=== PATIENT | female | born 1930 | race Caucasian/White ===

== ENCOUNTER → 2017-11-17 08:05 | Day surgery (SDC) | payer MEDICARE, BC ==
[~2017-11-17 08:05] MED LIST: Aspirin 81 mg CHEW TAB* 81 MG TAB.CHEW ONE; Clopidogrel TAB* 75 MG ONE; Flumazenil* 0.1 MG/ML 5 ML MDV ONE; Heparin 2 UNITS/ML IVPREMIX* 1,000 ML IV ONE; Heparin 2 UNITS/ML IVPREMIX* 2,000 ML IV ONE; Heparin(*) 1000 UNIT/ML 10 ML VIAL CATH LAB IV ONE; Iodixanol* (CONTRAST) 320 MG/ML 100 ML SDV ONE; Iohexol 350 (CONTRAST) 200 ML MDV IV ONE; LORazepam TAB(*) 1 MG ONE; Lidocaine 1% INJ* 10 MG/ML 30 ML SDV ONE; Midazolam* 1 MG/ML 10 ML VIAL (10 MG) ONE; Naloxone* 0.4 MG/ML 1 ML VIAL ONE; fentaNYL* 50 MCG/ML 2 ML VIAL (100 MCG VIAL) ONE; nitroGLYCERIN DRIP* 25,000 MCG/250 ML BTL ONE
--- NOTE | 2017-11-17 14:49 | PN ---
Progress Note - Progress Note Date of Service: 11/17/17 SOAP: Subjective: Pain at back and right shoulder. No abdominopelvic or LE pain. No pain at left groin. Objective: 94 bpm, 22, 118/59, 93% (room air) Left groin is soft, nontender Dressing is CDI Abdomen is soft nontender Faint 1+ pulse palpated at right DPA Assessment: 87 YOF status post pelvic and RLE arteriography and balloon angioplasty of right external iliac artery, BILINGUAL INTERPRETER, SFA and popliteal arteries. Percutaneous Minx closure device to left common femoral arteriotomy. Plan: 1. D/C back to [facility] after 2 hours bedrest. 2. Start Plavix 75 mg PO every other day x 6 months. 3. ASA 81 mg PO daily for life. 4. Continue wound care and abx.
[2017-11-17 16:15] VITALS: BP 158/74
--- NOTE | 2017-11-17 18:36 | RAD ---
CPT II Codes: G9500 Procedure(s) performed: 1. Diagnostic pelvic and right lower extremity arteriogram. 2. Balloon angioplasty of the distal most right external iliac artery, right common femoral artery, right superficial femoral artery and right popliteal artery. 3. Percutaneous Minx closure device to the left common femoral arteriotomy. Date of service: November 17, 2017 Indication for procedure: Nonhealing wound along the medial aspect of the right great toe Comparison: LYNDON dated September 19, 2017 Contrast: 130 mL Visipaque 320 Fluoroscopy Time: 23.2 minutes Vessels Accessed: Percutaneous access was obtained with ultrasound guidance in the left common femoral artery in the retrograde direction towards the heart. Catheter arteriography, with the catheter tip located within the lumen of the following arteries, was performed at the left external iliac artery, aorta, right external iliac artery, right common femoral artery and right superficial femoral artery. Anesthesia: Conscious sedation with IV Fentanyl and Versed as well as local 1% lidocaine injected locally at the arteriotomy site. Conscious sedation time: Timeout: 1124 hours Case end: 1348 hours Total conscious sedation time: 2 hours and 24 minutes Additional medications: * 300 mcg IA nitroglycerin injected intermittently throughout the course of the procedure to alleviate arterial spasm. * IV heparin 5000 Units to achieve a goal ACT of 250-300. * The patient received mg of p.o. Ativan prior to the onset of the procedure. PROCEDURE NOTE AND INTRAPROCEDURAL IMAGING FINDINGS: Immediately prior to the procedure the patient's daughter signed consent after thoroughly discussing all risks, benefits and alternative therapies with the patient and her daughter. The patient was positioned on the fluoroscopy table in the supine position and the bilateral groins were shaved, prepped and the patient was draped in standard sterile fashion. Using fluoroscopic imaging the location of the left common femoral head was marked externally with a skin marker on the patient's groin. Utilizing sonographic guidance and palpation, the left common femoral artery was cannulated overlying the femoral head with a 21-gauge needle. An ultrasound image was saved. A microwire was slowly and smoothly advanced into the common femoral artery under fluoroscopic imaging. No buckling of the wire was visualized to indicate dissection. With the wire securing percutaneous arterial access, the needle was removed and a 5-Martiniquais access sheath was advanced under fluoroscopic control into the common femoral artery retrograde into the left external iliac artery securing access. The microwire and inner stiffener were removed and a 0.035 inch Bentson wire was advanced under fluoroscopic control into the aorta. Over the Bentson wire the 5-Martiniquais access sheath was replaced with a 5-Martiniquais SideArm access sheath. Contrast arteriogram was performed through the side arm of the access sheath demonstrating appropriate true lumen access of the left common femoral artery. There is multifocal stenoses in the left common femoral superficial femoral arteries. To further characterize and exactly locate the extent of atherosclerotic disease involving the pelvis and right lower extremity diagnostic catheter arteriography was necessary. Over the wire a multiside hole straight flush catheter was advanced into the lower abdominal aorta. Injection arteriography was performed demonstrating curvature of the aortoiliac arterial segment but patency is maintained up to the junction of the right external iliac arteries and common femoral arteries. Contrast arteriography included inferior mesenteric arteriogram which demonstrated hyperemia of the sigmoid colon and evidence of wall thickening up to 4 mm. Utilizing a 5-Martiniquais rim catheter the contralateral right common iliac artery was accessed and a wire was advanced as far as the right superficial femoral artery. A 4-Martiniquais glide catheter was advanced into the proximal right superficial femoral artery to perform contrast arteriography of the right lower extremity. This demonstrated multifocal stenoses throughout the length of the right superficial femoral artery including high-grade stenosis at the origin. There is stenoses also within the right common femoral artery and the distal most right external iliac artery. More inferiorly multiple stenoses in the distal right superficial femoral artery continuing into the right popliteal artery. There is a high branch point of the right anterior tibial artery which appears to be the lone infrapopliteal artery filling below the level of the knee. The right anterior tibial artery continues into the dorsalis pedis artery which essentially provides the sole blood flow to the patient's foot. There is no significant filling of either the peroneal or posterior tibial arteries. A 260 cm length hydrophilic wire was inserted into the catheter and advanced to the distal right superficial femoral artery securing access. Over the wire the 5-Martiniquais access sheath was replaced with a long 45 cm access sheath and this was advanced until the tip was at the right external iliac artery. Through the sheath and over the wire a 5 mm x 150 mm Passeo-35 35 balloon was advanced and balloon angioplasty was performed from the distal most right external iliac artery including the entire length of the right common femoral artery, the superficial femoral artery and the proximal half of the right popliteal artery. During each inflation the balloon was slowly dilated in a stepwise fashion to avoid dissection and vasospasm. At each level the balloon was first inflated to nominal pressure slowly and was ultimately inflated to 14 kun corresponding to an approximate diameter of 5.3 mm. At this maximum diameter the balloon remained inflated for minimum of 3 minutes and no erosive best achieving patency. It was difficult to inflate the balloon much further than the mid-level popliteal artery. Furthermore, the visualization of the popliteal artery was obscured by the patient's knee prosthesis. With external assistance the patient's knee was rotated in a manner that allowed good angiographic visualization of the distal most popliteal artery revealing multifocal severe stenoses nearing occlusion. Contrast arteriography was performed from the access sheath with the tip now in the right external iliac artery. A 0.014 inch advantage microwire was advanced as far as the proximal right anterior tibial artery securing access across the patient's low in-line flow below the knee. Over the wire a 4 mm x 80 mm Nanocross balloon was advanced to the popliteal artery and balloon angioplasty was performed along the entire length of the popliteal artery up to the branch point with the anterior tibial artery. Similar to the prior series of angioplasty, the balloon was slowly inflated in a stepwise fashion achieving 14 kun of pressure corresponding to a diameter measurement of 4.3 mm. Arteriography from the access sheath with the tip in the right external iliac artery demonstrates improved flow throughout the length of the right superficial femoral artery, into the popliteal artery and filling the right anterior tibial artery proximally. The microwire was exchanged for a catheter for standard 0.035 inch Bentson wire. Over the wire the 45 cm length access sheath was exchanged for a new 5-Martiniquais, 11 cm length access sheath intended specifically for percutaneous arterial closure. Through the side arm of the access sheath arteriography of the left common femoral artery demonstrated an appropriate puncture of the common femoral artery above the bifurcation and below the inferior epigastric artery. After an appropriate resterilization of the arteriotomy and exchange for new sterile gloves, a Minx closure device was deployed at the common femoral arteriotomy and pressure held for approximately 15 minutes. There were no signs of bleeding at the percutaneous arterial access site and the site was dressed with sterile gauze and Tegaderm. The patient tolerated the procedure well and was transferred to angiography holding bay for standard post procedural observation. SUMMARY OF PROCEDURE, IMAGING FINDINGS AND INTERVENTIONS PERFORMED: 1. Diagnostic studies performed: * Arterial access was obtained at the left common femoral artery in the retrograde direction (i.e. towards the heart) with ultrasound guidance. A sonographic image was recorded. * Diagnostic catheter angiography (necessary to perform the appropriate interventions) was performed with the catheter tip in the left external iliac artery, aorta, right external iliac artery, right common femoral artery and right superficial femoral artery. * Catheter arteriography was performed of the lower abdominal aorta and bilateral iliac arterial system and the right lower extremity arteries from the right external iliac artery to the digital branches of the right forefoot. * At the conclusion of the procedure arteriography was performed through the side arm of the access sheath to image the distal right external iliac artery, right common femoral artery and proximal superficial femoral artery and femoral profundus. 2. Interpretation of diagnostic studies performed: * Adequate patency in the lower abdominal aorta extending into the bilateral iliofemoral arteries. Stenoses began at the distal right external iliac artery and continuing into the right femoral arteries becoming more severe and frequent inferiorly. * Single vessel runoff into the right foot is provided by the right anterior tibial artery which exhibits a high bifurcation off of the popliteal artery. There is essentially no filling of the peroneal or posterior tibial arteries. * Arteriography performed for the purpose of deploying a percutaneous arterial closure device demonstrates adequately patent left external iliac artery, common femoral artery and proximal superficial femoral artery and femoral profundus. 3. Surgical interventions performed: * Balloon angioplasty of the distal most right external iliac artery, right common femoral artery, right superficial femoral artery and proximal right popliteal artery utilizing a 5 mm x 150 mm Passeo 35 Biotronik balloon. During each inflation the balloon was inflated in a stepwise fashion, Deandra and 14 kun corresponding to a diameter measurement of 5.3 mm. This final diameter remain inflated for a minimum of 3 minutes at each inflation to address vasospasm. * After advancing a microwire into the right anterior tibial artery, balloon angioplasty was performed of the more distal right popliteal artery and branch point of the right anterior tibial artery using a 4 mm x 80 mm NanoCross Elite balloon. The balloon was inflated ultimately to 14 kun corresponding to a diameter measurement of 4.3 mm and remain inflated at this diameter for a minimum of 3 minutes. * Hyperemia of the sigmoid colon is consistent with sigmoid colitis. * Closure of the left common femoral artery was achieved with a Minx closure device followed by 15 minutes of gentle manual pressure. 4. Interpretation of interventions performed: * Final arteriography demonstrated improved in-line flow from the right external iliac artery as far as the proximal right anterior tibial artery. Plan: 1. Aspirin 81 mg p.o. daily for life. 2. Plavix 75 mg p.o. every other day x 6 months. (The reduced dosage is out of consideration for the patient's Xarelto 20 mg p.o. daily). 3. Clinical and imaging follow-up according to standard Interventional Radiology protocol. 4. Recommend continued wound care. 5. The appearance of sigmoid colitis was discussed over the telephone with Dr. Cullen.
== END | disposition home or self-care (01) ==
LOC: CHICATH 08:05
PROVIDERS: ATTEND Radiology Diagnostic Radiology
DX: I70.261 Atherosclerosis of native arteries of extremities with gangrene, right leg (principal); E11.9 Type 2 diabetes mellitus without complications; Z79.4 Long term (current) use of insulin; Z79.01 Long term (current) use of anticoagulants; Z87.01 Personal history of pneumonia (recurrent); I69.354 Hemiplegia and hemiparesis following cerebral infarction affecting left non-dominant side
CPT/HCPCS: 75736; 76937; 85347; 99156; 99157; A9270-GY; C1725; C1769; C1887; C1894; J1644; J2250; J2310; J3010

== ENCOUNTER 2017-11-21 00:37 | Inpatient (IN) | payer MEDICARE, BC ==
--- NOTE | 2017-11-21 00:54 | ED ---
GI/ HPI - HPI Summary HPI Summary: An 87 y/o F BIBA from [facility] presents to ED for possible GI bleed. Pt had an angiogram four days ago. Pt c/o vomiting bile and blood stool. She is non-ambulatory. PMHx: GERD, HTN, afib, arthritis, DM, CVATIA. - History of Current Complaint Chief Complaint: EDBleedingDisorder Time Seen by Provider: 11/21/17 00:43 Stated Complaint: GENERAL ILLNESS Hx Obtained From: Patient, Other: - transfer call from [place] Onset/Duration: Still Present Timing: Constant Pain Intensity: 0 - out of 10 Associated Signs and Symptoms: Positive: Vomiting - Additional Pertinent History Primary Care Physician: CARLEY - Allergy/Home Medications Allergies/Adverse Reactions: Allergies Allergy/AdvReac Type Severity Reaction Status Date / Time codeine Allergy Unknown Verified 11/21/17 00:44 Reaction Details gabapentin [From Neurontin] Allergy Unknown Verified 11/21/17 00:44 Reaction Details Home Medications: Home Medications Aspirin [Aspir-Low] 81 mg PO DAILY 11/21/17 [History Confirmed 11/21/17] PMH/Surg Hx/FS Hx/Imm Hx Previously Healthy: No Endocrine/Hematology History: Reports: Hx Anticoagulant Therapy - asa 81 plavix , Hx Blood Transfusions - about 4 yrs ago when toe was amputated, Hx Diabetes, Hx Anemia - take iron at home Denies: Hx Blood Disorders, Hx Bone Marrow Disease, Hx Systemic Lupus Erythematosus, Hx Sickle Cell Disease, Hx Thyroid Disease, Hx Unexplained Bleeding, Other Endocrine/Hematological Disorders Cardiovascular History: Reports: Hx Hypercholesterolemia, Hx Hypertension, Hx Peripheral Vascular Disease - neorapathy, Hx Syncope - while pregnate, Other Cardiovascular Problems/Disorders - quadrupel bypass Denies: Hx Aneurysm, Hx Angina, Hx Angioplasty, Hx Auto Implanted Cardiovert Defib, Hx Cardiac Arrest, Hx Cardiomegaly, Hx Congestive Heart Failure, Hx Coronary Artery Disease, Hx Deep Vein Thrombosis, Hx Embolism, Hx Hypotension, Hx Pacemaker/ICD, Hx Rheumatic Fever, Hx Valvular Heart Disease Respiratory History: Denies: Hx Asthma, Hx Chronic Bronchitis, Hx Chronic Obstructive Pulmonary Disease (COPD), Hx Cystic Fibrosis, Hx Lung Cancer, Hx Pleural Effusion, Hx Pneumonia, Hx Pulmonary Edema, Hx Pulmonary Embolism, Hx Seasonal Allergies, Hx Sleep Apnea GI History: Reports: Hx Hiatal Hernia - umbilical hernia, 60 years, out a bit more over the last year, Other GI Disorders - balooning anus Denies: Hx Cirrhosis, Hx Crohn's Disease, Hx Diverticulosis, Hx Gall Bladder Disease, Hx Gastroesophageal Reflux Disease - occasional, Hx Gastrointestinal Bleed, Hx Irritable Bowel, Hx Jaundice, Hx Obstructive Bowel, Hx Ileostomy, Hx Pyloric Stenosis, Hx Ulcer History: Reports: Other Problems/Disorders - occasional UTI Denies: Hx Acute Renal Failure, Hx Benign Prostatic Hyperplasia, Hx Chronic Renal Failure, Hx Dialysis, Hx Kidney Infection, Hx Kidney Stones Musculoskeletal History: Reports: Hx Arthritis, Hx Back Problems - lower vertebrae, arthritis, Hx Osteoporosis - 2nd toe on right foot was amputated 3-4 yrs ago Denies: Hx Bursitis, Hx Congenital Bone Abnormalities, Hx Fibromyalgia, Hx Gout, Hx Scoliosis, Hx Tendonitis, Other Musculoskeletal History Sensory History: Reports: Hx Cataracts, Hx Contacts or Glasses, Hx Vision Problem - floaters, Hx Hearing Problem - comes and goes Denies: Hx Eye Injury, Hx Eye Prosthesis, Hx Glaucoma, Hx Legally Blind, Hx Macular Degeneration, Hx Deafness, Hx Hearing Aid, Other Sensory Impairments Opthamlomology History: Reports: Hx Cataracts, Hx Contacts or Glasses, Hx Vision Problem - floaters Denies: Hx Eye Injury, Hx Eye Prosthesis, Hx Glaucoma, Hx Legally Blind, Hx Macular Degeneration, Other Sensory Impairments Neurological History: Reports: Hx Headaches - occasional perhaphs related to neck pain, Hx Nerve Disease - neuropathy, Hx Spinal Cord Injury - arthritis to three lower vert Denies: Hx Dementia, Hx Developmental Delay, Hx Migraine, Hx Seizures, Hx Transient Ischemic Attacks (TIA), Other Neuro Impairments/Disorders Psychiatric History: Denies: Hx Anxiety, Hx Depression - Surgical History Surgery Procedure, Year, and Place: 2009 toe amputated. 2005 quad bypass. D&C 54 yrs ago Hx Anesthesia Reactions: Yes - slow coming out Infectious Disease History: No Infectious Disease History: Denies: Hx Clostridium Difficile, Hx Hepatitis, Hx Human Immunodeficiency Virus (HIV), Hx of Known/Suspected MRSA, Hx Shingles, Hx Tuberculosis, Hx Known/ Suspected VRE, Hx Known/Suspected VRSA, History Other Infectious Disease, Traveled Outside the [place] in Last 30 Days - Family History Known Family History: Positive: Cardiac Disease - CAD - Social History Occupation: Retired Lives: With Family Alcohol Use: None Substance Use Type: Reports: None Smoking Status (MU): Never Smoked Tobacco Review of Systems Negative: Cough Positive: Vomiting, Other - pos: blood stools All Other Systems Reviewed And Are Negative: Yes Physical Exam - Summary Physical Exam Summary: VITAL SIGNS: Reviewed. GENERAL: Patient is a well-developed, nourished, and elderly FEMALE who is lying comfortable in the stretcher. Patient is not in any acute respiratory distress. HEAD AND FACE: No signs of trauma. No ecchymosis, hematomas or skull depressions. No sinus tenderness. EYES: PERRLA, EOMI x 2, No injected conjunctiva, no nystagmus. EARS: Hearing grossly intact. Ear canals and tympanic membranes are within normal limits. MOUTH: Oropharynx within normal limits. NECK: Supple, trachea is midline, no adenopathy, no JVD, no carotid bruit, no c- spine tenderness, neck with full ROM. CHEST: Symmetric, no tenderness at palpation LUNGS: Clear to auscultation bilaterally. No wheezing or crackles. CVS: Regular rate and rhythm, S1 and S2 present, no murmurs or gallops appreciated. ABDOMEN: Soft, non-tender. Divaricating abd. No rebound no guarding, and no masses palpated. Bowel sounds are normal. EXTREMITIES: FROM in all major joints, no edema, no cyanosis or clubbing. Pt is wearing padded boots on bilat LE. NEURO: Alert and oriented x 3. Grossly non-focal. Speech is normal and follows commands. SKIN: Dry and warm Triage Information Reviewed: Yes Vital Signs On Initial Exam: Initial Vitals Temp Pulse Resp BP Pulse Ox 100 F 98 18 120/63 94 11/21/17 00:40 11/21/17 00:40 11/21/17 00:40 11/21/17 00:40 11/21/17 00:40 Vital Signs Reviewed: Yes Diagnostics - Vital Signs Vital Signs Temp Pulse Resp BP Pulse Ox 11/21/17 00:40 100 F 98 18 120/63 94 - Laboratory Result Diagrams: 11/23/17 06:31 11/23/17 06:31 Lab Statement: Any lab studies that have been ordered have been reviewed, and results considered in the medical decision making process. GIGU Course/Dx - Course Course Of Treatment: An 87 y/o F BIBA from [facility] presents to ED for possible GI bleed. Pt had an angiogram four days ago. Pt c/o vomiting bile and blood stool. Hospitalist paged at [phone]. Consulted with Dr. Matthew hospitalist, who will admit pt. - Diagnoses Provider Diagnoses: Upper GI bleed - Physician Notifications Discussed Care Of Patient With: Ivon Matthew - hospitalist Time Discussed With Above Provider: 04:37 Instructed by Provider To: Admit As Inpatient Discharge - Sign-Out/Discharge Documenting (check all that apply): Patient Departure - ADM - Discharge Plan Condition: Stable Disposition: ADMITTED TO [facility] - Billing Disposition and Condition Condition: STABLE Disposition: Admitted to [facility] - Attestation Statements Document Initiated by Scribe: Yes Documenting Scribe: Ernesto Sinclair Provider For Whom Deandre is Documenting (Include Credential): Dr. Shruthi Bains MD Scribe Attestation: Ernesto Sandy, scribed for Dr. Shruthi Bains MD on 11/25/17 at 0610. Scribe Documentation Reviewed: Yes Provider Attestation: The documentation as recorded by the Ernesto knapp accurately reflects the service I personally performed and the decisions made by me, Dr. Shruthi Bains MD
[2017-11-21] MEDS ORDERED: Pantoprazole IV* 40 MG IV ONE (01:02)
[2017-11-21] MEDS ORDERED: Pantoprazole IV* 80 MG in NS 0.9% 250 ML* 250 ML IV SCH (02:00)
[2017-11-21] MEDS ORDERED: NS 0.9% 1000 ML* 1,000 ML IV SCH (05:00)
--- NOTE | 2017-11-21 05:24 | ADMNOTE ---
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 as per [facility] note pt was found to have fever too at [facility] but could not find the tmax. her wbc has increased from 12 to 16 yesterday despite of chronically on bactrim and levaquin ---> has been on that for chronic om of the right foot upon exam, she has a eschar seen on the right foot despite of abx ---> needs to be debrided ---> abx changed to zosyn and vanco --> wound eval called and gi called for consult ---> info of why consults needed left. her hg prior to transfer was 10 ---> NO LABS DONE UPON ADMISSION FROM ER ? 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 chronic anemia paf type ii dm chronic back pain gerd pshx s/p r hip replacement Review of Systems - Measurements Intake and Output: Intake and Output Last 24 Hours 11/18/17 11/19/17 11/20/17 11/21/17 06:59 06:59 06:59 06:59 Weight 130 lb 14.4 oz - Review of Systems General Comments: poor historian unable to get from pt but she knows she has bleed from behind Objective Active Medications: Acetaminophen (Tylenol Tab*) 650 mg PO BEDTIME WAYNE Docusate Sodium (Colace Cap*) 200 mg PO DAILY WAYNE Ferrous Gluconate (Fergon Tab*) 324 mg PO DAILY WAYNE Fluticasone Propionate (Flonase Nasal [place] 50mcg*) 1 spray BOTH NARES DAILY WAYNE Sodium Chloride (Ns 0.9% 1000 Ml*) 1,000 mls @ 75 mls/hr IV PER RATE WAYNE Levofloxacin (Levaquin Tab*) 250 mg PO DAILY WAYNE Non-Formulary Medication (Ascorbic Acid [Vitamin C]) 250 mg PO BID WAYNE Non-Formulary Medication (Cholecalciferol (Vitamin D3) [Vitamin D3]) 1,000 unit PO BEDTIME WAYNE Non-Formulary Medication (Cholecalciferol (Vitamin D3) [Vitamin D3]) 2,000 unit PO DAILY WAYNE Nortriptyline HCl (Pamelor Cap*) 20 mg PO BEDTIME WAYNE Omeprazole (Prilosec Cap*) 20 mg PO BID WAYNE Oxycodone HCl (Roxycodone Tab*) 5 mg PO BEDTIME WAYNE Pantoprazole Sodium (Protonix Iv*) 40 mg IV Q24H WAYNE Polyethylene Glycol/Electrolytes (Miralax*) 17 gm PO DAILY WAYNE Pregabalin (Lyrica Cap(*)) 25 mg PO DAILY WAYNE Senna (Senokot Tab*) 3 tab PO BEDTIME WAYNE Trimethoprim/Sulfamethoxazole (Bactrim Ds 800/160 Tab*) 1 tab PO BID [facility] Vital Signs - 8 hr 11/21/17 11/21/17 11/21/17 00:40 01:12 01:13 Temperature 100 F Pulse Rate 98 92 98 Respiratory 18 Rate Blood Pressure 120/63 102/58 (mmHg) O2 Sat by Pulse 94 96 95 Oximetry 11/21/17 11/21/17 11/21/17 01:42 02:00 02:12 Temperature Pulse Rate 97 90 90 Respiratory 19 18 19 Rate Blood Pressure 108/57 103/52 (mmHg) O2 Sat by Pulse 92 93 93 Oximetry 11/21/17 11/21/17 11/21/17 02:42 03:00 03:12 Temperature Pulse Rate 84 86 85 Respiratory 13 19 19 Rate Blood Pressure 119/58 104/52 (mmHg) O2 Sat by Pulse 93 93 92 Oximetry 11/21/17 11/21/17 11/21/17 03:42 04:00 04:12 Temperature Pulse Rate 84 84 85 Respiratory 18 14 19 Rate Blood Pressure 113/56 104/56 (mmHg) O2 Sat by Pulse 93 92 92 Oximetry 11/21/17 11/21/17 04:42 05:00 Temperature Pulse Rate 87 87 Respiratory 13 18 Rate Blood Pressure 97/55 (mmHg) O2 Sat by Pulse 95 91 Oximetry Eyes: PERRLA Ears/Nose/Mouth/Throat: - - oral mucosa dry very hard of hearing Neck: NL Appearance and Movements; NL JVP, Trachea Midline, No Thyroid Enlargement, Masses Respiratory: - - decreased b/s at base no sig rales heard at b/l lung [place] Cardiovascular: - - s1 s2 Abdominal: NL Sounds; No Tenderness; No Distention Extremities: No Edema, No Clubbing, Cyanosis, - - no pedal edema with right foot medial aspect + echycar/erythema around + left hemiparalysis the only ext she can move against gravity is the rue Skin: - - + r foot eshcar Neurological: Alert and Oriented x 3 - left hemiparalysis Result Diagrams: 11/21/17 06:20 11/21/17 06:20 Assess/Plan/Problems-Billing Assessment: 87 yr old wf with multple medical problems on asa/plavix/ xarelto was transferred from [facility] to [facility] due to brbpr pt was found to have elevated wbc with black echecar seen on r foot ---> pt carries a dx of chronic r foot om on bactrim/levaquin ---> still have temp to at least 100 with wbc of 12-16 prior to admission - Patient Problems (1) CAD (coronary artery disease) Current Visit: No Status: Acute Priority: High Code(s): I25.10 - ATHSCL HEART DISEASE OF BLACKFEET CORONARY ARTERY W/O ANG PCTRS SNOMED Code(s): 68384828 Comment: tele with juan m hold asa/plavix/ xarelto (2) Acute blood loss anemia Current Visit: No Status: Acute Priority: High Code(s): D62 - ACUTE POSTHEMORRHAGIC ANEMIA SNOMED Code(s): 262745865 Comment: Hg prior to transfer is 10 ---> routine lab ordered for am sbp wnl (3) A-fib Current Visit: Yes Status: Acute Code(s): I48.91 - UNSPECIFIED ATRIAL FIBRILLATION SNOMED Code(s): 52900007 Comment: on xarelto with hx of cva ---> on hold for now due to lower gib until gi sees the pt consult placed (4) HTN (hypertension) Current Visit: No Status: Acute Priority: Medium Code(s): I10 - ESSENTIAL (PRIMARY) HYPERTENSION SNOMED Code(s): 32676224 Comment: stable continue out pt meds (5) History of CVA (cerebrovascular accident) Current Visit: Yes Status: Acute Code(s): Z86.73 - PRSNL HX OF TIA (TIA), AND CEREB INFRC W/O RESID DEFICITS SNOMED Code(s): 295799368 Comment: supportive care at this point may karolina to resume anticoag and xarelto once she stablizes (6) SIRS (systemic inflammatory response syndrome) Current Visit: Yes Status: Acute Code(s): R65.10 - SIRS OF NON-INFECTIOUS ORIGIN W/O ACUTE ORGAN DYSFUNCTION SNOMED Code(s): 864510390 Comment: increased wbc with fever despite of levaquin and bactrim source currently is due to r foot om - wound care consult to debride - zosyn and vanco - ? id (7) Acute lower gastrointestinal bleeding Current Visit: Yes Status: Acute Code(s): K92.2 - GASTROINTESTINAL HEMORRHAGE, UNSPECIFIED SNOMED Code(s): 08053768 Comment: gi consult placed pending upon gi suggestion then will place further orders npo except meds now protonix 40 mg daily asa plavix and xarelto on hold for now
[2017-11-21] MEDS ORDERED: Vancomycin(*) 1,000 MG in NS 0.9% 250 ML* 250 ML IVPB ONE (05:50)
[2017-11-21] MEDS ORDERED: Piperacillin/Tazobac ADVAN(*) 3.375 GM in NS 0.9% 100 ML* 100 ML IVPB SCH (06:00)
[2017-11-21] MEDS ORDERED: Vancomycin(*) 1,000 MG BAG/ADDV IVPB ONE (06:31)
[2017-11-21 06:34] LABS: Hematocrit 29 % (35-47); Hemoglobin 9.5 g/dl (12.0-16.0)
[2017-11-21] MEDS: NS 0.9% 1000 ML* 1,000 ML IV SCH (08:23)
[2017-11-21 08:32] LABS: ABS Basophils 0.1 10^3/ul (0-0.2); ABS Eosinophils 0.4 10^3/ul (0-0.6); ABS Lymphocytes 1.8 10^3/ul (1.0-4.8); ABS Neutrophils 9.2 10^3/ul (1.5-7.7); ABS Nucleated RBC 0 10^3/ul; Eosinophil % 3.4 % (0-6); Lymphocyte % 14.3 % (25-47); Mean Corpuscular HGB Conc 33 g/dl (31-36); Mean Corpuscular Hemoglobin 26 pg (27-31); Mean Corpuscular Volume 78 fL (80-97); Mean Platelet Volume 5.9 um3 (7.4-10.4); Nucleated Red Blood Cells % 0; Platelet Count 472 10^3/ul (150-450); Red Blood Count 3.73 10^6/ul (4.00-5.40); Red Cell Distribution Width 20 % (10.5-15); White Blood Count 12.4 10^3/ul (3.5-10.8)
[2017-11-21 08:47] LABS: EGFR Non-African American 75.6 (>60)
[2017-11-21] MEDS ORDERED: Omeprazole CAP* 20 MG PO SCH (09:00)
[2017-11-21] MEDS ORDERED: ZOSYN 3.375 GM x ONE DOSE over 30 miuntes IVPB ×2 (09:00)
[2017-11-21] MEDS ORDERED: Sulfamethox/Trimethoprim DS 800/160* TAB PO SCH (09:00)
[2017-11-21] MEDS ORDERED: Levofloxacin TAB* 250 MG PO SCH (09:00)
[2017-11-21] MEDS: Polyethylene Glycol 3350* 17 GM PACKET PO SCH (09:05)
[2017-11-21] MEDS: Docusate CAP* 100 MG PO SCH (09:05)
[2017-11-21] MEDS: Cholecalciferol TAB* 1000 UNITS PO SCH ×2 (09:21→22:22)
[2017-11-21] MEDS: Pregabalin CAP(*) 25 MG PO SCH (09:21)
[2017-11-21] MEDS: Ferrous Gluconate TAB* 324 MG TAB PO SCH (09:21)
[2017-11-21] MEDS: Ascorbic Acid TAB* 500 MG PO SCH ×2 (09:21→22:22)
[2017-11-21] MEDS: Fluticasone NASAL SPRAY 50MCG* 16 gm SPRAY BTL BOTH NARES SCH (11:18)
[2017-11-21] MEDS: Pantoprazole IV* 40 MG IV SCH (11:18)
--- NOTE | 2017-11-21 11:23 | PN ---
Subjective Date of Service: 11/21/17 Interval History: Patient reports she feels better today. Reports one BM this am w/o noted blood ( per nurse). She denies any abdominal pain or vomiting. Reports her right foot wound started a few months ago and is followed by her primary. She denies fever or chills. No nausea. CVA > 5 years ago which left her with left sided facial droop and weakness. 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 chronic anemia paf type ii dm chronic back pain gerd pshx s/p r hip replacement Objective Active Medications: Acetaminophen (Tylenol Tab*) 650 mg PO BEDTIME WAYNE Ascorbic Acid (Vitamin C Tab*) 250 mg PO BID [facility] Last Admin: 11/21/17 09:21 Dose: Not Given Cholecalciferol (Vitamin D Tab*) 1,000 units PO BEDTIME [facility] Cholecalciferol (Vitamin D Tab*) 2,000 units PO DAILY [facility] Last Admin: 11/21/17 09:21 Dose: Not Given Docusate Sodium (Colace Cap*) 200 mg PO DAILY [facility] Last Admin: 11/21/17 09:05 Dose: Not Given Ferrous Gluconate (Fergon Tab*) 324 mg PO DAILY [facility] Last Admin: 11/21/17 09:21 Dose: Not Given Fluticasone Propionate (Flonase Nasal [place] 50mcg*) 1 spray BOTH NARES DAILY [facility] Sodium Chloride (Ns 0.9% 1000 Ml*) 1,000 mls @ 75 mls/hr IV PER RATE [facility] Last Admin: 11/21/17 08:23 Dose: 75 mls/hr Piperacillin Sod/Tazobactam (Sod 3.375 gm/ Sodium Chloride) 100 mls @ 25 mls/ hr IVPB 0530,1330,2130 WAYNE Nortriptyline HCl (Pamelor Cap*) 20 mg PO BEDTIME WAYNE Oxycodone HCl (Roxycodone Tab*) 5 mg PO BEDTIME WAYNE Pantoprazole Sodium (Protonix Iv*) 40 mg IV Q24H WAYNE Polyethylene Glycol/Electrolytes (Miralax*) 17 gm PO DAILY [facility] Last Admin: 11/21/17 09:05 Dose: Not Given Pregabalin (Lyrica Cap(*)) 25 mg PO DAILY [facility] Last Admin: 11/21/17 09:21 Dose: Not Given Senna (Senokot Tab*) 3 tab PO BEDTIME [facility] Vital Signs - 8 hr 11/21/17 11/21/17 11/21/17 03:42 04:00 04:12 Temperature Pulse Rate 84 84 85 Respiratory 18 14 19 Rate Blood Pressure 113/56 104/56 (mmHg) O2 Sat by Pulse 93 92 92 Oximetry 11/21/17 11/21/17 11/21/17 04:42 05:00 05:12 Temperature Pulse Rate 87 87 90 Respiratory 13 18 19 Rate Blood Pressure 97/55 112/62 (mmHg) O2 Sat by Pulse 95 91 93 Oximetry 11/21/17 11/21/17 11/21/17 05:42 06:00 06:12 Temperature Pulse Rate 85 85 83 Respiratory 18 17 18 Rate Blood Pressure 104/61 120/51 (mmHg) O2 Sat by Pulse 94 92 92 Oximetry 11/21/17 11/21/17 11/21/17 06:43 07:10 08:00 Temperature 97.4 F 97.7 F Pulse Rate 84 79 Respiratory 20 16 16 Rate Blood Pressure 118/52 114/44 (mmHg) O2 Sat by Pulse 94 94 Oximetry Oxygen Devices in Use Now: None Appearance: elderly female laying in bed resting A+O x3 in NAD. Eyes: No Scleral Icterus, PERRLA Ears/Nose/Mouth/Throat: NL Teeth, Lips, Gums, Mucous Membranes Moist Neck: NL Appearance and Movements; NL JVP Respiratory: Symmetrical Chest Expansion and Respiratory Effort, Clear to Auscultation Cardiovascular: NL Sounds; No Murmurs; No JVD, RRR, No Edema Abdominal: NL Sounds; No Tenderness; No Distention Skin: - - right foot noted to have eschar area over 1rst metarasal/phalange - foot is warmer compared to left - mild erythema noted. No drainage Neurological: Alert and Oriented x 3, - - left sided facial droop and weakness ( at her baseline) Lines/Tubes/Other Access: Clean, Dry and Intact Peripheral IV Nutrition: - - NPO Result Diagrams: 11/21/17 11:40 11/21/17 06:20 Microbiology and Other Data: Microbiology 11/21/17 08:25 Nasal Screen MRSA (PCR) - Final Nasal Mrsa Not Detected Assess/Plan/Problems-Billing Assessment: 87 yr old female with multple medical problems on asa/plavix/ xarelto was transferred from [facility] to [facility] due to brbpr pt was found to have elevated wbc with black echscar seen on r foot ---> pt carries a dx of chronic r foot om on bactrim/levaquin ---> still have temp to at least 100 with wbc of 12-16 prior to admission - Patient Problems (1) Acute lower gastrointestinal bleeding Comment: - GI consult pending. - Bloody stool in ER - BM this am with gel like stool with no blood noted. - Strict I+O's - npo except meds now - protonix 40 mg daily - asa plavix and xarelto on hold for now (2) Acute blood loss anemia Comment: Hg prior to transfer is 10 ---> down to 9.5. Monitor HH Q6hr continue NS 75ml/hr SBP stable (3) SIRS (systemic inflammatory response syndrome) Comment: - Increased wbc with fever despite of levaquin and bactrim source currently is due to r foot osteo - wound care consult - zosyn - Vanco was given on admission - - ID and ortho consult placed - MRI foot to assess for osteo - send blood cx. and lactic (4) CAD (coronary artery disease) Comment: tele hold asa/plavix/ xarelto (5) History of CVA (cerebrovascular accident) Comment: Hold xarelto (6) Diabetes 1.5, managed as type 2 Comment: FSBG Q 4hours while NPO Hold home regimen of regular insulin and lantus - start lispro SS (7) HLD (hyperlipidemia) Comment: Continue Tricor and Lipitor. (8) DVT prophylaxis Comment: Hold DVT p d/t GI bleed. SCDs only Status and Disposition: inpatient with GI, SIRS 2nd to foot osteo failed outpt abx now on IV abx. DC back to SNF when medically stable.
[2017-11-21 12:04] LABS: Hematocrit 32 % (35-47); Hemoglobin 10.1 g/dl (12.0-16.0)
[2017-11-21] MEDS: Piperacillin/Tazobac ADVAN(*) 3.375 GM in NS 0.9% 100 ML* 100 ML IVPB SCH ×2 (13:52→22:22)
--- NOTE | 2017-11-21 17:16 | CONS ---
CONSULTATION REPORT: DATE OF CONSULT: 11/21/17 REQUESTING PROVIDER: Cynthia Fan NP CONSULTING SERVICE: Infectious Disease. REASON FOR CONSULT: Right foot infection. IMPRESSION: Right medial forefoot dry gangrene with associated cellulitis in the setting of peripheral vascular disease and history of [id number] angioplasty. Wound culture on 11/16/17 of that wound grew Pseudomonas sensitive to Zosyn. RECOMMENDATIONS: Agree with MRI to evaluate for osteomyelitis. Pending those results, probable orthopedic consultation. HISTORY OF PRESENT ILLNESS: This is an 87-year-old woman, who has been followed as an outpatient for right foot wound by Dr. Cullen. Her wound earlier in the month grew Pseudomonas. She had been on Levaquin. She thinks the wound has been present about [address] Beauchamp did [id number] angioplasty earlier in the month. She has had no drainage and does not have pain in the foot, though she does have neuropathy. [facility], but [facility] here for GI bleed. She was febrile at [facility] as well with leukocytosis of 16,000. She was on vancomycin and Zosyn here initially, now just Zosyn. She has been here and hemodynamically stable. Her hemoglobin is 10 today. PAST MEDICAL HISTORY: 1. Peripheral vascular disease, status post [id number]-mwq-teld intervention. 2. Diabetes with peripheral neuropathy. 3. History of stroke with left hemiparesis. 4. Coronary disease. 5. Atrial fibrillation. 6. Hypertension. MEDICATIONS: 1. Tylenol. 2. Vitamin C. 3. Cholecalciferol. 4. Docusate. 5. Ferrous gluconate. 6. Fluticasone nasal spray. 7. Nortriptyline at bedtime. 8. Oxycodone at bedtime. 9. Zosyn 3.375 g IV every 8 hours. 10. Pantoprazole IV. 11. Pregabalin. 12. Senna. ALLERGIES: CODEINE and GABAPENTIN. FAMILY HISTORY: No recurrent infections. SOCIAL HISTORY: She lives at [facility]. She has no sick contacts. REVIEW OF SYSTEMS: All negative to a 14-point review of systems except as noted above in the history of present illness. PHYSICAL EXAM: Vital Signs: Temperature 36.2, heart rate 70, respiratory rate 16, blood pressure 109/40, oxygen saturation 97% on room air. In general, she is awake, not in distress. Neurologic: She is oriented x3. Follows all commands. She has left upper and lower extremity paralysis. HEENT: There is no conjunctival hemorrhage. Oropharynx without lesions. Neck is supple without mass. Heart is irregularly irregular without murmurs. Lungs are clear to auscultation bilaterally. Abdomen: Soft, nontender, nondistended. There are bowel sounds present. Skin: There is no rash or splinter hemorrhage. Musculoskeletal: There is no spine tenderness to palpation. Right medial forefoot over the first MTP, there is 2.5 cm ovoid area of eschar with surrounding erythema. There is no purulence or tenderness to palpation. There is a 1+ dorsalis pedis pulse. LABORATORY DATA: White blood cell count 12, hemoglobin 9, platelets 472. The followup hemoglobin at 11 was 10. Creatinine 0.7. CRP 105. Please see impressions and recommendations as outlined above, which I have discussed with Cynthia Fan NP. Thanks for asking me to see Ms. Cavanaugh in consultation. [id number]/[facility] #: [id number] ADELSO
--- NOTE | 2017-11-21 17:33 | RAD ---
INDICATION: Worsening right foot wound COMPARISON: None. TECHNIQUE: 3 views of the right foot were obtained. FINDINGS: The patient is status post amputation of the right second phalanges. Corresponding to the location of the wound along the medial aspect of the distal right first metatarsal head there is valgus deformity at the metatarsophalangeal joint. There is cortical destruction along the medial aspect of the right first metatarsal distal head. Overall the bones are diffusely demineralized. Advanced calcified atherosclerosis is noted at the visualized infrapopliteal and pedal arteries. IMPRESSION: CORTICAL DESTRUCTION ALONG THE MEDIAL ASPECT OF THE FIRST METATARSAL MEDIAL HEAD COULD BE SEEN IN THE SETTING OF OSTEOMYELITIS AT THIS LOCATION.
[2017-11-21 18:51] LABS: Hematocrit 28 % (35-47); Hemoglobin 8.7 g/dl (12.0-16.0)
--- NOTE | 2017-11-21 22:12 | CONS ---
CONSULTATION REPORT: DATE OF CONSULT: 11/21/17 CHIEF COMPLAINT: Right great toe wound. HISTORY OF PRESENT ILLNESS: Corrine is an 87-year-old female, who presented to the ER with concern for a GI bleed. She also has a wound on the medial aspect of her right great toe that has been treated chronically for with Bactrim and Levaquin. She recently had a balloon angioplasty of the distal most right external iliac artery, right common femoral artery, right superficial femoral artery, and right popliteal artery, as well as percutaneous Mynx closure device to the left common femoral arteriotomy by Dr. Beauchamp on 11/17/17. She is now 4 days out from that procedure in an attempt to revascularize the lower extremities for treatment of chronic peripheral vascular disease. The patient also has a history of amputation of the second right toe 4 years ago for treatment of osteomyelitis. The patient states that she continues to have pain in the right great toe, but it has not changed much in the past couple of weeks. She does report pain in her bilateral lower extremities due a history of neuropathy. She is diabetic and she also has numbness and tingling due to the chronic neuropathy. She denies fevers, chills, chest pain, shortness of breath, and is doing well otherwise. PAST MEDICAL HISTORY: Blood transfusion 4 years ago, diabetes, anemia, high cholesterol, hypertension, peripheral vascular disease, neuropathy of the upper and lower extremities bilaterally, history of syncope when , coronary artery disease with quadruple bypass, hiatal hernia, umbilical hernia, osteoarthritis, chronic back pain, osteoporosis, and second toe amputation. PAST SURGICAL HISTORY: Toe amputation, quadruple bypass in 2005, and D and C 54 years ago. Denies major complications with anesthesia. MEDICATIONS: 1. Senna 3 tabs before bedtime. 2. Omeprazole 20 mg 1 by mouth 2 times a day. 3. Bactrim DS 1 tab by mouth twice a day. 4. Xarelto 10 mg 1 by mouth daily. 5. Vitamin D3 2000 units p.o. daily. 6. Vitamin D3 1000 units p.o. at bedtime. 7. Acetaminophen 325 two tabs at bedtime. 8. Oxycodone 5 mg 1 by mouth at bedtime. 9. Nortriptyline 20 mg by mouth at bedtime. 10. MiraLAX 17 g by mouth daily. 11. Lyrica 25 mg by mouth daily. 12. Lantus 12 units subcu daily. 13. Insulin regular 5 units subcu daily. 14. Flonase spray, 1 spray in the bilateral nares daily. 15. Fergon tabs 324 mg 1 by mouth daily. 16. Colace 200 mg by mouth daily. 17. Ascorbic acid 250 mg by mouth twice a day. 18. Plavix 75 mg by mouth every other day. 19. Levofloxacin 250 mg 1 tab by mouth daily. 20. Aspirin 81 mg 1 by mouth daily. ALLERGIES: CODEINE and GABAPENTIN. FAMILY HISTORY: Positive for coronary artery disease. SOCIAL HISTORY: She is retired. She lives with her family. She denies tobacco use, alcohol use, or illegal drug use. REVIEW OF SYSTEMS: A 14-point review of systems was reviewed with the patient. Positive for vomiting, blood in her stools, and current complaint of bilateral lower extremity pain and wound on her medial aspect of her right great toe, otherwise negative. PHYSICAL EXAM: General: An 87-year-old well-developed, well-nourished female, in no acute distress. Alert and oriented x3. Appropriate mood and affect. Appropriate balance and coordination of the lower extremities. Right lower extremity: There is a large black eschar on the medial aspect of the right great toe near the MTP joint that is tender to palpation, chronic skin changes surrounding the eschar with no significant warmth or erythema. No active drainage. She has a full range of motion of the ankle. Able to flex and extend her toes with some discomfort. Calf soft, nontender. +5/5 strength to ankle dorsiflexion and plantar flexion. +2 DP pulse. Sensation decreased to light touch distally. Left lower extremity: Skin is intact. No warmth or erythema. Nontender to palpation. No abrasions or open wounds. Full range of motion of the ankle. Calf soft, nontender. +5/5 strength to ankle dorsiflexion and plantar flexion. +2 DP pulse. Sensation intact to light touch distally. ASSESSMENT: Chronic right great toe wound. PLAN: Corrine is an 87-year-old female, who presented to the hospital for treatment of a GI bleed, but she has a chronic wound on her right great toe with recent revascularization. X-rays and MRI are pending to further evaluate the degree of osteomyelitis. Continue Zosyn per Infectious Disease recommendations. Also, we will appreciate Vascular and Infectious Disease input on the status of the wound, wound healing ability, and quality of the infection, as well as recommended treatment for the infection. We will continue to follow for wound monitoring. WHIT LOMELI [id number]/[facility] #: [id number] ADELSO
[2017-11-21] MEDS: Nortriptyline CAP* 10 MG PO SCH (22:21)
[2017-11-21] MEDS: oxyCODONE TAB* 5 MG TAB PO SCH (22:21)
[2017-11-21] MEDS: Acetaminophen TAB* 325 MG PO SCH (22:21)
[2017-11-21] MEDS: Senna TAB PO SCH (22:29)
--- NOTE | 2017-11-21 22:37 | CONS ---
CONSULTATION REPORT: DATE OF CONSULTATION: 11/21/17 REQUESTING PHYSICIAN: REASON FOR CONSULTATION: Hematochezia. HISTORY OF PRESENT ILLNESS: This is a pleasant 87-year-old female with a history of AFib; CAD, on Plavix, aspirin, and Xarelto; diabetes; and CVA, who presented from the [facility] ER initially for possible GI bleed. She had an angiogram for peripheral vascular disease 4 to 5 days ago. The episode was 1 self- limiting. She denies any abdominal pain. No diarrhea or constipation. She denies any history of this in the past. She states she has never had a colonoscopy. She currently denies any further bleeding after the episode from the prior emergency room. At this time, she denies lightheadedness or dizziness. She is not ambulatory at baseline secondary to prior CVA. She denies any dysphagia, odynophagia, reflux, or heartburn. Denies any excess Motrin, ibuprofen, Aleve, or aspirin use. She denies any nausea or emesis. She states that she has had chronic left-sided facial droop and left-sided weakness. She is chair-bound and does not ambulate. She does have a right foot issue and eschar and she did have an angiogram done recently. Remainder of the 14-point review of systems is grossly negative. PAST MEDICAL HISTORY: AFib, CVA with left hemiparesis, type 2 diabetes, and severe peripheral vascular disease. PAST SURGICAL HISTORY: Recent angiography. HOME MEDICATIONS: Include: 1. Acetaminophen. 2. Ascorbic acid. 3. Aspirin. 4. Vitamin D3. 5. Plavix. 6. Colace. 7. Ferrous gluconate. 8. Fluticasone. 9. Insulin. 10. Levofloxacin. 11. Nortriptyline. 12. Omeprazole. 13. Oxycodone. 14. MiraLAX. 15. Lyrica. 16. Xarelto. 17. Senokot. 18. Trimethoprim double strength. ALLERGIES: Include CODEINE and GABAPENTIN. FAMILY HISTORY: No family history of GI, cancer, or inflammatory bowel disease. SOCIAL HISTORY: With prior internet security specialist of until recently. Negative tobacco. Negative ETOH. REVIEW OF SYSTEMS: Remainder of the 14-point review of systems is grossly negative. PHYSICAL EXAM: Vital Signs: Blood pressure 97/42, pulse 78, respiratory rate 16, 96% on room air. General: Elderly-appearing female, in bed. Alert and oriented x3, in no acute distress. HEENT: Atraumatic, normocephalic. Pupils are equal, round, and reactive to light. Sclerae anicteric. Conjunctivae are pink. Neck: Supple. No appreciable JVP. Trachea midline. Cardiovascular: Irregular rate and rhythm. S1, S2. Respiratory: Clear to auscultation bilaterally. Abdomen: Soft, nontender, nondistended. Bowel sounds positive. Skin Exam: Right foot with eschar. Neurological: Left-sided hemiparesis at baseline. Rectal Exam: Revealed normal tone with a brown stool. DIAGNOSTIC STUDIES/LAB DATA: Hemoglobin is 10.1, this appears to be closed to her baseline over the last 2 to 3 years, platelet count of 472. ASSESSMENT AND PLAN: This is an 87-year-old female with 1 episode of hematochezia and also presents with a peripheral vascular disease and possible right foot issue. 1. Hematochezia, self-limiting 1 episode, never had colonoscopy in the past. I discussed aggressive therapy including potentially doing a colonoscopy here versus watchful waiting. She would prefer to avoid any invasive procedures unless absolutely necessary at this point. She does not have any evidence of ongoing bleeding. She states that if she was to have recurrence of bleeding, she may be interested in colonoscopy at that point. At this point, we will hold on further evaluation. Her hemoglobin is at baseline. If she develops any new symptoms or recurrence of bleeding, consideration for colonoscopy. The patient understands the risk of not doing a colonoscopy including missed lesions, , morbidity, but at this point would prefer a conservative approach, which is reasonable. 2. Atrial fibrillation. 3. Severe peripheral vascular disease. 4. Right great toe with eschar per PMD. [id number]/[facility] #: [id number] [facility]
[2017-11-22] MEDS: NS 0.9% 1000 ML* 1,000 ML IV SCH (03:31)
[2017-11-22] MEDS: Pantoprazole IV* 40 MG IV SCH (05:16)
[2017-11-22] MEDS: Piperacillin/Tazobac ADVAN(*) 3.375 GM in NS 0.9% 100 ML* 100 ML IVPB SCH ×3 (05:16→22:15)
[2017-11-22 06:11] LABS: Hematocrit 27 % (35-47); Hemoglobin 8.4 g/dl (12.0-16.0); Mean Corpuscular HGB Conc 32 g/dl (31-36); Mean Corpuscular Hemoglobin 25 pg (27-31); Mean Corpuscular Volume 79 fL (80-97); Mean Platelet Volume 5.9 um3 (7.4-10.4); Platelet Count 434 10^3/ul (150-450); Red Blood Count 3.38 10^6/ul (4.00-5.40); Red Cell Distribution Width 20 % (10.5-15); White Blood Count 11.3 10^3/ul (3.5-10.8)
[2017-11-22 06:22] LABS: ABS Neutrophils 7.6 10^3/ul (1.5-7.7)
[2017-11-22 06:30] LABS: EGFR Non-African American 84.9 (>60)
[2017-11-22 06:54] LABS: ABS Basophils 0.1 10^3/ul (0-0.2); ABS Eosinophils 0.5 10^3/ul (0-0.6); ABS Lymphocytes 2.4 10^3/ul (1.0-4.8); ABS Monocytes 0.8 10^3/ul (0-0.8); ABS Nucleated RBC 0 10^3/ul; Eosinophil % 4.2 % (0-6); Lymphocyte % 21.2 % (25-47); Nucleated Red Blood Cells % 0.1
--- NOTE | 2017-11-22 08:47 | RAD ---
Indication: RIGHT great toe wound. Elevated white blood cell count. Fever. Comparison: November 21, 2017 radiographs. Technique: Noncontrast CT RIGHT foot from the level of the transverse tarsal joint through the toes. Report: Postsurgical change of amputation of the second toe at level of the metatarsal phalangeal joint. There is abnormal T2 signal involving the phalanges of the great toe and first metatarsal seen as far proximal as the mid diaphysis. There is corresponding loss of normal T1 marrow hyperintensity at the first proximal phalanx and first metatarsal. Soft tissue edema involving the subcutaneous tissue plane and intrinsic musculature of the foot. No loculated soft tissue plane abscess collection evident. Subcutaneous emphysema noted over the medial and dorsal aspects at the level of the first metatarsal phalangeal joint corresponding with soft tissue ulcer site. Moderate hallux valgus deformity. IMPRESSION: #. Osteomyelitis involving the first digit from the level of the mid diaphysis of the first metatarsal distal. Soft tissue inflammatory change without evidence for a loculated soft tissue plane abscess collection.
--- NOTE | 2017-11-22 10:07 | PN ---
Subjective Date of Service: 11/22/17 Interval History: . patient seen and evaluated at her bedside - daughter present during visit. Pt offers no complaints. She denies pain in her right foot. She discussed options with orthopedic surgeon today and has refused surgical intervention/ amputation and would like to try IV abx. She states she understands the risks. No fevers or chills. Denies abdominal pain. N/V/D. Reports good appetite. No further rectal bleeding or bloody or melena stools. 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 chronic anemia paf type ii dm chronic back pain gerd pshx s/p r hip replacement Objective Active Medications: Acetaminophen (Tylenol Tab*) 650 mg PO BEDTIME [facility] Last Admin: 11/21/17 22:21 Dose: 650 mg Ascorbic Acid (Vitamin C Tab*) 250 mg PO BID [facility] Last Admin: 11/21/17 22:22 Dose: 250 mg Cholecalciferol (Vitamin D Tab*) 1,000 units PO BEDTIME [facility] Last Admin: 11/21/17 22:22 Dose: 1,000 units Cholecalciferol (Vitamin D Tab*) 2,000 units PO DAILY [facility] Last Admin: 11/21/17 09:21 Dose: Not Given Docusate Sodium (Colace Cap*) 200 mg PO DAILY [facility] Last Admin: 11/21/17 09:05 Dose: Not Given Ferrous Gluconate (Fergon Tab*) 324 mg PO DAILY [facility] Last Admin: 11/21/17 09:21 Dose: Not Given Fluticasone Propionate (Flonase Nasal [place] 50mcg*) 1 spray BOTH NARES DAILY [facility] Last Admin: 11/21/17 11:18 Dose: 1 spray Sodium Chloride (Ns 0.9% 1000 Ml*) 1,000 mls @ 75 mls/hr IV PER RATE [facility] Last Admin: 11/22/17 03:31 Dose: 75 mls/hr Piperacillin Sod/Tazobactam (Sod 3.375 gm/ Sodium Chloride) 100 mls @ 25 mls/ hr IVPB 0530,1330,2130 [facility] Last Admin: 11/22/17 05:16 Dose: 25 mls/hr Nortriptyline HCl (Pamelor Cap*) 20 mg PO BEDTIME [facility] Last Admin: 11/21/17 22:21 Dose: 20 mg Oxycodone HCl (Roxycodone Tab*) 5 mg PO BEDTIME [facility] Last Admin: 11/21/17 22:21 Dose: 5 mg Pantoprazole Sodium (Protonix Iv*) 40 mg IV Q24H [facility] Last Admin: 11/22/17 05:16 Dose: 40 mg Polyethylene Glycol/Electrolytes (Miralax*) 17 gm PO DAILY [facility] Last Admin: 11/21/17 09:05 Dose: Not Given Pregabalin (Lyrica Cap(*)) 25 mg PO DAILY [facility] Last Admin: 11/21/17 09:21 Dose: Not Given Senna (Senokot Tab*) 3 tab PO BEDTIME [facility] Last Admin: 11/21/17 22:29 Dose: Not Given Vital Signs - 8 hr 11/22/17 03:17 Temperature 97.4 F Pulse Rate 74 Respiratory 20 Rate Blood Pressure 122/52 (mmHg) O2 Sat by Pulse 97 Oximetry Oxygen Devices in Use Now: None Appearance: elderly 87 yo female laying in bed in NAD - A+O x3 Eyes: No Scleral Icterus, PERRLA Ears/Nose/Mouth/Throat: Mucous Membranes Moist Respiratory: Symmetrical Chest Expansion and Respiratory Effort, Clear to Auscultation Cardiovascular: NL Sounds; No Murmurs; No JVD, RRR, No Edema Abdominal: NL Sounds; No Tenderness; No Distention Skin: - - right foot gangrene on first metatarsal - appears less erythematous compared to yesterday - no drainage or foul odor - + 2+ DP pulses - foot is warm and well perfused Neurological: Alert and Oriented x 3 Lines/Tubes/Other Access: Clean, Dry and Intact Peripheral IV Nutrition: Taking PO's Result Diagrams: 11/22/17 11:11 11/22/17 05:46 Microbiology and Other Data: Microbiology 11/21/17 08:25 Nasal Screen MRSA (PCR) - Final Nasal Mrsa Not Detected Assess/Plan/Problems-Billing Assessment: 87 yr old female with multple medical problems on asa/plavix/ xarelto was transferred from [facility] to [facility] due to brbpr pt was found to have elevated wbc with black echscar seen on r foot ---> pt carries a dx of chronic r foot om on bactrim/levaquin ---> still have temp to at least 100 with wbc of 12-16 prior to admission - Patient Problems (1) Acute lower gastrointestinal bleeding Comment: - GI consult - one episode of bloody stool- pt does not want a colonoscopy at this time. No further bloody stools. HH stable. - protonix 40 mg daily - stool for occult blood pending (2) Acute blood loss anemia Comment: stable (3) Gangrene of right foot Comment: - failed outpatient levaquin and bactrim - recent re-vascularization right LE from hip-knee by Dr. Beauchamp on 11/17 - spoke to Dr. Beauchamp - plan to restart ASA only and hold plavix - will wait and watch for 5 days then plan to restart xarelto - Appreciate ID consult - recommending zosyn - will require halfway IVs - ortho following- will f/u with patient at [place] - MRI foot showing: osteo involving the first digit from the level of mid diaohysis of the first metatarsal distal. Soft tissue inflammatory change w/o evidence for loculated soft tissue. -blood cx. NTD - wound care consult (4) SIRS (systemic inflammatory response syndrome) Comment: resolved (5) CAD (coronary artery disease) Comment: tele restart asa - recommend to restart xarelto in 5 days if no further GI bleeding (6) History of CVA (cerebrovascular accident) Comment: Hold xarelto - see above (7) Diabetes 1.5, managed as type 2 Comment: FSBG AC with lispro SS Hold home regimen of regular insulin start lantus 10 units QHS (8) HLD (hyperlipidemia) Comment: Continue Tricor and Lipitor. (9) DVT prophylaxis Comment: Hold DVT p d/t GI bleed. SCDs only Status and Disposition: inpatient with GI, SIRS 2nd to foot osteo failed outpt abx now on IV abx. DC back to SNF when medically stable.
[2017-11-22] MEDS ORDERED: Dextrose 50% Syringe 50 ML* 25 GM/50 ML SYRINGE IV PUSH PRN (10:17)
--- NOTE | 2017-11-22 11:01 | CONSULT ---
Consult Consult: S: Agree with Conchis Jacobson's note from yesterday. Patient lives at [facility] and is normally followed by Bethel Cullen MD, PCP at [facility] and has seen a reheater helper locally. Admitted for hematochezia, bleeding has stopped, anticoagulants being held, and patient refusing further workup. Patient's describes wound as being present for 1 month, though this is unlikely. Non-ambulatory and uses wheelchair. Prior history of right 2nd toe amputation. O: RLE: - Large eschar (~ 3 x 3 cm) along medial side of forefoot at level of great toe MTP joint - Surrounding rim of erythema with tenderness - Hallux valgus deformity - Sensation intact, but reduced to light touch toes - PT pulse 2+ intact; DP pulse not palpable; CR < 2 sec Laboratory Tests 11/21/17 11/21/17 11/21/17 06:20 11:40 18:43 WBC 12.4 H Hct 29 L 32 L 28 L Neut % (Auto) POC Glucose (mg/dL) 11/22/17 11/22/17 11/22/17 04:25 05:45 10:04 WBC 11.3 H Hct 27 L Neut % (Auto) 67.5 POC Glucose (mg/dL) 139 H 127 H A: Right great toe osteomyelitis Right medial forefoot wound with eschar Diabetes mellitus, PVD, peripheral neuropathy, non-ambulatory P: - Proximal extent of osteo is the distal end of 1st metatarsal - Given the failure of oral antibiotics and the large eschar overlying the 1st MTP joint, I don't expect healing of this infection. I recommended amputation, transmetatarsal of great toe. - A debridement of the eschar would leave exposed bone (to air) at the MTP joint given the size of that escharm, her valgus deformity, and the lack of soft tissue in that location as well as underlying osteoamyelitis. - Patient refused amputation. - Given the amputation refusal, I would recommend IV antibiotics. The patient can follow up with me in clinic in 2 weeks at [place] or in [place] in clinic. - Defer to ID service regarding IV antibiotics.
[2017-11-22] MEDS: Pregabalin CAP(*) 25 MG PO SCH (11:13)
[2017-11-22] MEDS: Cholecalciferol TAB* 1000 UNITS PO SCH ×2 (11:16→22:16)
[2017-11-22 11:18] LABS: Hematocrit 30 % (35-47); Hemoglobin 9.6 g/dl (12.0-16.0)
[2017-11-22] MEDS: Ascorbic Acid TAB* 500 MG PO SCH ×2 (11:18→22:15)
[2017-11-22] MEDS: Fluticasone NASAL SPRAY 50MCG* 16 gm SPRAY BTL BOTH NARES SCH (11:21)
[2017-11-22] MEDS: Ferrous Gluconate TAB* 324 MG TAB PO SCH (11:21)
[2017-11-22 11:27] LABS: INR 0.96 (0.77-1.02)
[2017-11-22] MEDS: Insulin LISPRO* 1 UNITS UNIT SUBCUT SCH ×2 (11:32→17:29)
[2017-11-22] MEDS: Docusate CAP* 100 MG PO SCH (11:35)
[2017-11-22] MEDS: Polyethylene Glycol 3350* 17 GM PACKET PO SCH (11:37)
[2017-11-22] MEDS ORDERED: Perflutren Lipid Microsphere* 3 ML VIAL ONE (14:36)
--- NOTE | 2017-11-22 17:02 | ECHO ---
Amended Report Patient: IDALIA MAZARIEGOS [facility] Rec#: [id number] : 1930 Date: 11/22/2017 Age: 87y Height: 155 cm / 61.0 in Weight: 61 kg / 134.4 lbs Sex: F BSA: 1.6 Room#: [facility] Admit Date#: 11/21/2017 Type: Inpatient Referring: Cynthia Fan Reading: Delano Pulido MD Incident Coordinator: Charlotte Lagunas TOMAS CC: Bethel Cullen MD Transthoracic Echocardiogram Indication: A-fib//CAD BP: 122/52 HR: 77 Rhythm: NSR Findings History: Dry gangrene right foot,PVD,DM,CVA with left hemiparesis,CAD,HTN. Technical Comments: The study is technically limited due to poor acoustic windows. Completed at 1500. Definity used to enhance images. Left Ventricle: The left ventricular chamber size is normal. Mild to moderate concentric left ventricular hypertrophy is observed. There is normal left ventricular systolic function. The estimated ejection fraction is greater than 65%. Abnormal left ventricular diastolic function is observed. Abnormal left ventricular diastolic filling is observed, consistent with impaired relaxation. The patient was unable to perform a Valsalva maneuver. Left Atrium: The left atrium is mildly dilated. Right Ventricle: The right ventricle is not well visualized. Right Atrium: The right atrium is not well visualized. Aortic Valve: The aortic valve is trileaflet. The aortic valve leaflets are mildly thickened. There is no evidence of aortic regurgitation. There is no evidence of aortic stenosis. Mitral Valve: There is mitral annular calcification. The mitral valve leaflets are mildly thickened. There is a trace of mitral regurgitation. There is no evidence of mitral stenosis. Tricuspid Valve: The tricuspid valve structure is not well visualized. Pulmonic Valve: The pulmonic valve appears normal in structure and function. There is no evidence of pulmonic regurgitation. There is no pulmonic stenosis. Pericardium: A pericardial fat pad is visualized. Aorta: There is no dilatation of the ascending aorta. There is no dilatation of the aortic arch. There is no dilation of the aortic root. Pulmonary Artery: The main pulmonary artery appears normal. Venous: The venous system is not well visualized. Contrast: Definity was used to optimize study. 3 ml used. Intravenous contrast was used to enhance endocardial border definition. Conclusions Mild to moderate concentric left ventricular hypertrophy is observed. The estimated ejection fraction is greater than 65%. Abnormal left ventricular diastolic filling is observed, consistent with impaired relaxation. The aortic valve leaflets are mildly thickened. There is a trace of mitral regurgitation. The left atrium is mildy dilated. Similar to 08/2013 except that the the MR was reported as mild last time. Measurements Name Value Normal Range RVIDd (AP) 2D 2.8 cm (0.9 - 2.6) IVSd (2D) 1.3 cm (0.6 - 1) LVPWd (2D) 1.1 cm (0.6 - 1) LVIDd (2D) 3.9 cm (3.6 - 5.4) LVIDs (2D) 2.1 cm - LV FS (2D) 46 % (25 - 45) Aortic Annulus 2.1 cm (1.4 - 2.6) Ao root diameter (2D) 3.3 cm (2.1 - 3.5) Ascending Ao 3.4 cm (2.1 - 3.4) Aortic arch 1.8 cm (1.8 - 3.4) Descending Ao 0.4 cm - LA dimension (AP) 2D 4.2 cm (2.3 - 3.8) LAd ISD 4CH 5.3 cm (2.9 - 5.3) LA ISD 4CH W 4.7 cm (2.5 - 4.5) Name Value Normal Range MV E-wave Vmax 0.9 m/sec - MV deceleration time 229 msec - MV A-wave Vmax 1 m/sec - MV E:A ratio 0.9 ratio - LV septal e' Vmax 0.07 m/sec - LV lateral e' Vmax 0.07 m/sec - Name Value Normal Range AV Vmax 1 m/sec - AV VTI 21.4 cm - AV peak gradient 4 mmHg - AV mean gradient 2 mmHg - LVOT Vmax 0.8 m/sec - LVOT VTI 20.7 cm - LVOT peak gradient 3 mmHg - LVOT mean gradient 1 mmHg - Name Value Normal Range PV Vmax 0.7 m/sec - PV peak gradient 2 mmHg -
[2017-11-22] MEDS ORDERED: Aspirin 81 mg CHEW TAB* 81 MG TAB.CHEW PO ONE (17:18)
[2017-11-22 18:39] LABS: Hematocrit 31 % (35-47)
[2017-11-22] MEDS ORDERED: Insulin GLARGINE(*) 1 UNITS UNIT SUBCUT SCH (21:00)
[2017-11-22] MEDS: oxyCODONE TAB* 5 MG TAB PO SCH (22:15)
[2017-11-22] MEDS: Nortriptyline CAP* 10 MG PO SCH (22:15)
[2017-11-22] MEDS: Acetaminophen TAB* 325 MG PO SCH (22:15)
[2017-11-22] MEDS: Senna TAB PO SCH (22:23)
[2017-11-23] MEDS: Piperacillin/Tazobac ADVAN(*) 3.375 GM in NS 0.9% 100 ML* 100 ML IVPB SCH (05:57)
[2017-11-23] MEDS: Pantoprazole IV* 40 MG IV SCH (05:57)
[2017-11-23 07:10] LABS: Hematocrit 34 % (35-47); Hemoglobin 10.4 g/dl (12.0-16.0); Mean Corpuscular HGB Conc 31 g/dl (31-36); Mean Corpuscular Hemoglobin 25 pg (27-31); Mean Corpuscular Volume 81 fL (80-97); Mean Platelet Volume 5.9 um3 (7.4-10.4); Platelet Count 381 10^3/ul (150-450); Red Cell Distribution Width 20 % (10.5-15); White Blood Count 10.8 10^3/ul (3.5-10.8)
[2017-11-23 07:22] LABS: EGFR Non-African American 96.6 (>60)
[2017-11-23 07:44] LABS: ABS Basophils 0.1 10^3/ul (0-0.2); ABS Eosinophils 0.4 10^3/ul (0-0.6); ABS Monocytes 0.9 10^3/ul (0-0.8); ABS Neutrophils 6.4 10^3/ul (1.5-7.7); ABS Nucleated RBC 0 10^3/ul; Eosinophil % 4.1 % (0-6); Lymphocyte % 27.6 % (25-47); Nucleated Red Blood Cells % 0.1
[2017-11-23] MEDS: Insulin LISPRO* 1 UNITS UNIT SUBCUT SCH ×3 (08:30→17:10)
[2017-11-23] MEDS: Ascorbic Acid TAB* 500 MG PO SCH ×2 (08:36→21:22)
[2017-11-23] MEDS: Pregabalin CAP(*) 25 MG PO SCH (08:37)
[2017-11-23] MEDS: Polyethylene Glycol 3350* 17 GM PACKET PO SCH (08:37)
[2017-11-23] MEDS: Cholecalciferol TAB* 1000 UNITS PO SCH ×2 (08:37→21:24)
[2017-11-23] MEDS: Docusate CAP* 100 MG PO SCH (08:37)
[2017-11-23] MEDS: Ferrous Gluconate TAB* 324 MG TAB PO SCH (08:37)
[2017-11-23] MEDS: Aspirin 81 mg CHEW TAB* 81 MG TAB.CHEW PO SCH (08:37)
[2017-11-23] MEDS: Fluticasone NASAL SPRAY 50MCG* 16 gm SPRAY BTL BOTH NARES SCH (08:37)
[2017-11-23] MEDS ORDERED: Clopidogrel TAB* 75 MG PO SCH (09:00)
[2017-11-23] MEDS ORDERED: Aspirin 81 mg CHEW TAB* 81 MG TAB.CHEW PO SCH (09:00)
--- NOTE | 2017-11-23 09:48 | PN ---
Progress Note - Progress Note Date of Service: 11/23/17 SOAP: Subjective: CC: gangrene HPI: 87 year old woman with PAD and right forefoot wound here with GIB and cellulitis. Redness receding around eschar. No foot pain. She denies fever, rash, or diarrhea. She met with Dr Dodson yesterday who recommended amputation. Objective: Vital Signs Temp 36.4 C 11/23/17 07:48 Pulse 74 11/23/17 07:48 Resp 16 11/23/17 08:37 BP 124/41 11/23/17 07:48 Pulse Ox 100 11/23/17 07:48 Intake & Output 11/22/17 11/23/17 11/23/17 18:59 06:59 18:59 Intake Total 660 345 Output Total 0 0 Balance 660 345 Intake: IVPB 105 Antibiotics 105 Oral 660 240 Output: Urine 0 0 Other: Estimated Void Medium Medium # Bowel Movements 1 0 Estimated Stool Amount Small Small # Voids 1 1 Gen:awake, no distress HEENT: no thrush Heart:RRR no murmur Lungs:CTA BL Abd:+BS NTND soft Skin: no rash MSK:R medial forefoot eschar w surrounding rim of erythema Laboratory Results - last 24 hr 11/22/17 11/22/17 11/22/17 10:04 11:11 11:11 WBC RBC Hgb 9.6 L Hct 30 L MCV MCH MCHC RDW Plt Count MPV Neut % (Auto) Lymph % (Auto) [place] % (Auto) Eos % (Auto) Baso % (Auto) Absolute Neuts (auto) Absolute Lymphs (auto) Absolute Monos (auto) Absolute Eos (auto) Absolute Basos (auto) Absolute Nucleated RBC Nucleated RBC % INR (Anticoag Therapy) 0.96 APTT 29.5 Sodium Potassium Chloride Carbon Dioxide Anion Gap BUN Creatinine Est GFR ( Amer) Est GFR (Non-Af Amer) BUN/Creatinine Ratio Glucose POC Glucose (mg/dL) 127 H Calcium 11/22/17 11/22/17 11/22/17 16:41 18:22 20:49 WBC RBC Hgb 10.0 L Hct 31 L MCV MCH MCHC RDW Plt Count MPV Neut % (Auto) Lymph % (Auto) [place] % (Auto) Eos % (Auto) Baso % (Auto) Absolute Neuts (auto) Absolute Lymphs (auto) Absolute Monos (auto) Absolute Eos (auto) Absolute Basos (auto) Absolute Nucleated RBC Nucleated RBC % INR (Anticoag Therapy) APTT Sodium Potassium Chloride Carbon Dioxide Anion Gap BUN Creatinine Est GFR ( Amer) Est GFR (Non-Af Amer) BUN/Creatinine Ratio Glucose POC Glucose (mg/dL) 196 H 167 H Calcium 11/23/17 11/23/17 11/23/17 06:31 06:31 07:24 WBC 10.8 RBC 4.20 Hgb 10.4 L Hct 34 L MCV 81 MCH 25 L MCHC 31 RDW 20 H Plt Count 381 MPV 5.9 L Neut % (Auto) 59.5 Lymph % (Auto) 27.6 [place] % (Auto) 8.1 H Eos % (Auto) 4.1 Baso % (Auto) 0.7 Absolute Neuts (auto) 6.4 Absolute Lymphs (auto) 3.0 Absolute Monos (auto) 0.9 H Absolute Eos (auto) 0.4 Absolute Basos (auto) 0.1 Absolute Nucleated RBC 0 Nucleated RBC % 0.1 INR (Anticoag Therapy) APTT Sodium 133 L Potassium 4.8 Chloride 108 Carbon Dioxide 18 L Anion Gap 7 BUN 16 Creatinine 0.59 Est GFR ( Amer) 116.9 Est GFR (Non-Af Amer) 96.6 BUN/Creatinine Ratio 27.1 H Glucose 128 H POC Glucose (mg/dL) 130 H Calcium 9.1 Assessment: 1. R foot acute non hematogenous osteomyelitis 2. R foot dry gangrene with cellulitis 3. PAD s/p R leg angioplasty 4. GI bleed, resolved Plan: 1. change zosyn to ceftriaxone 1 gm daily for 28 days with PICC and weekly cbc, cmp, crp 2. fu with Dr Dodson at [facility] for possibility of outpt surgery vs surgery here if daughter is amenable (placed call to her but no answer) 35 minutes floor time >50% face to face and coordinating care with Familia Dodson and Alyse and WALDEMAR Serna
[2017-11-23] MEDS: cefTRIAXone(*) 1 GM in NS 0.9% 50 ML* 50 ML IVPB SCH (13:01)
--- NOTE | 2017-11-23 13:03 | PN ---
Subjective Date of Service: 11/23/17 Interval History: Pt resting comfortably without complaint. Denies leg pain, chest pain, shortness of breath, N/V/D. 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 chronic anemia paf type ii dm chronic back pain gerd pshx s/p r hip replacement Objective Active Medications: Acetaminophen (Tylenol Tab*) 650 mg PO BEDTIME [facility] Last Admin: 11/22/17 22:15 Dose: 650 mg Ascorbic Acid (Vitamin C Tab*) 250 mg PO BID [facility] Last Admin: 11/23/17 08:36 Dose: 250 mg Aspirin (Aspirin 81 Mg Chew Tab*) 81 mg PO DAILY [facility] Last Admin: 11/23/17 08:37 Dose: 81 mg Cholecalciferol (Vitamin D Tab*) 1,000 units PO BEDTIME [facility] Last Admin: 11/22/17 22:16 Dose: 1,000 units Cholecalciferol (Vitamin D Tab*) 2,000 units PO DAILY [facility] Last Admin: 11/23/17 08:37 Dose: 2,000 units Dextrose (D50w Syringe 50 Ml*) 12.5 gm IV PUSH .FOR FS < 60 - SS PRN PRN Reason: FS < 60 Docusate Sodium (Colace Cap*) 200 mg PO DAILY [facility] Last Admin: 11/23/17 08:37 Dose: Not Given Ferrous Gluconate (Fergon Tab*) 324 mg PO DAILY [facility] Last Admin: 11/23/17 08:37 Dose: 324 mg Fluticasone Propionate (Flonase Nasal [place] 50mcg*) 1 spray BOTH NARES DAILY [facility] Last Admin: 11/23/17 08:37 Dose: 1 spray Ceftriaxone Sodium 1 gm/ (Sodium Chloride) 50 mls @ 200 mls/hr IVPB Q24H [facility] Insulin Glargine (Lantus(*)) 10 units SUBCUT Q24H [facility] Last Admin: 11/22/17 22:16 Dose: 10 units Insulin Human Lispro (Humalog*) 0 units SUBCUT AC [facility]; Protocol Last Admin: 11/23/17 11:49 Dose: 1 unit Nortriptyline HCl (Pamelor Cap*) 20 mg PO BEDTIME [facility] Last Admin: 11/22/17 22:15 Dose: 20 mg Oxycodone HCl (Roxycodone Tab*) 5 mg PO BEDTIME [facility] Last Admin: 11/22/17 22:15 Dose: 5 mg Pantoprazole Sodium (Protonix Iv*) 40 mg IV Q24H [facility] Last Admin: 11/23/17 05:57 Dose: 40 mg Polyethylene Glycol/Electrolytes (Miralax*) 17 gm PO DAILY [facility] Last Admin: 11/23/17 08:37 Dose: Not Given Pregabalin (Lyrica Cap(*)) 25 mg PO DAILY [facility] Last Admin: 11/23/17 08:37 Dose: 25 mg Senna (Senokot Tab*) 3 tab PO BEDTIME [facility] Last Admin: 11/22/17 22:23 Dose: Not Given Vital Signs - 8 hr 11/23/17 11/23/17 11/23/17 07:48 08:37 09:51 Temperature 97.6 F Pulse Rate 74 Respiratory 18 16 18 Rate Blood Pressure 124/41 (mmHg) O2 Sat by Pulse 100 Oximetry 11/23/17 11:28 Temperature 98.8 F Pulse Rate 83 Respiratory 20 Rate Blood Pressure 128/45 (mmHg) O2 Sat by Pulse 100 Oximetry Oxygen Devices in Use Now: None Eyes: PERRLA Ears/Nose/Mouth/Throat: NL Teeth, Lips, Gums, Mucous Membranes Moist Neck: NL Appearance and Movements; NL JVP, Trachea Midline Respiratory: Symmetrical Chest Expansion and Respiratory Effort Cardiovascular: NL Sounds; No Murmurs; No JVD, RRR, No Edema Abdominal: NL Sounds; No Tenderness; No Distention Extremities: No Edema, No Clubbing, Cyanosis, - - Eschar at right metatarsal joint with some surrounding erythema. No drainage or foul odor. Foot is warm and well perfused. 2+ DP and PT pulses bilaterally. Neurological: Alert and Oriented x 3, - - Left sided weakness residual deficits from prior CVA Result Diagrams: 11/23/17 06:31 11/23/17 06:31 Microbiology and Other Data: Microbiology 11/21/17 08:25 Nasal Screen MRSA (PCR) - Final Nasal Mrsa Not Detected Assess/Plan/Problems-Billing Assessment: 87 yr old female with multiple medical problems including R foot osteomyelitis ( on levaquin and bactrim), PVD s/p recent re-vascularization of right LE on asa/ plavix/ xarelto was transferred from [facility] to [facility] due to brbpr pt was found to have elevated wbc with black echscar seen on r foot. ED temp 100 with WBC 12.4 (16 prior to admission). ID and ortho consulted. No further signs of bleeding, VSS and H/H trending up. - Patient Problems (1) Gangrene of right foot Current Visit: Yes Status: Acute Code(s): I96 - GANGRENE, NOT ELSEWHERE CLASSIFIED SNOMED Code(s): 43321953828249871 Comment: - With associated cellulitis and osteomyelitis that failed outpatient levaquin and bactrim - Recent re-vascularization of right LE from hip-knee by Dr. Beauchamp on 11/17. Dr. Beauchamp was consulted about anticoagulation plan going forward given recent GIB- plan to restart ASA only and hold plavix - will wait and watch for 5 days then plan to restart xarelto - Ortho following- Dr. Miller met with patient and recommended amputation, however pt refused. IV abx recommended as well as follow up as outpatient at [place] if patient would like to re-consider amputation at that time. - ID is following: Recommending IV antibiotics with ceftriaxone 1g daily for 28 days as well as weekly monitoring of CBC, CMP, CRP. PICC order has been placed. Pt will be able to return to [facility] where she has been residing. - MRI foot showing: osteo involving the first digit from the level of mid diaohysis of the first metatarsal distal. Soft tissue inflammatory change w/o evidence for loculated soft tissue. - Blood culture with no growth to date - Afebrile with WBC WNL - wound care consult (2) GI bleed Current Visit: Yes Status: Acute Code(s): K92.2 - GASTROINTESTINAL HEMORRHAGE, UNSPECIFIED SNOMED Code(s): 55335414 Comment: - No further signs of bleeding. BP stable. Plavix and xarelto on hold. - H/H 10.4/34 today from low of 8.4/27. Will continue to monitor (3) Sepsis Current Visit: Yes Status: Acute Comment: - On admission presented with SIRS + known right foot infection. Now resolved- afebrile and WBC WNL. (4) History of CVA (cerebrovascular accident) Current Visit: Yes Status: Chronic Code(s): Z86.73 - PRSNL HX OF TIA (TIA), AND CEREB INFRC W/O RESID DEFICITS SNOMED Code(s): 281293813 Comment: - Left hemiparesis residual deficits - Xarelto and plavix held in the setting of GIB. Plan to resume as above. (5) Diabetes 1.5, managed as type 2 Current Visit: Yes Status: Chronic Priority: Medium Code(s): E13.9 - OTHER SPECIFIED DIABETES MELLITUS WITHOUT COMPLICATIONS SNOMED Code(s): 341102960 Comment: - Continue glargine 12 units nightly and sliding scale lispro (6) DVT prophylaxis Current Visit: Yes Status: Acute Priority: High Code(s): RME3761 - SNOMED Code(s): 037241576 Comment: - DVT ppx with SCDs only in setting of recent GI bleed (7) DNR (do not resuscitate) Current Visit: Yes Status: Acute Status and Disposition: inpatient with GI, SIRS 2nd to foot osteo failed outpt abx now on IV abx. DC back to SNF when medically stable. Attending: Anh Valadez
[2017-11-23] MEDS ORDERED: Insulin GLARGINE(*) 1 UNITS UNIT SUBCUT SCH ×2 (18:14→21:00)
--- NOTE | 2017-11-23 20:42 | PN ---
Progress Note - Progress Note Date of Service: 11/23/17 SOAP: Subjective: []Patient seen and examined at bedside. She was very sleepy and participate minimally in our conversation. Objective: []General: NAD RLE: right forefoot with eschar over medial 1st MTP and minimal erythema surrounding, no tracking proximally and no discharge. Sensation intact to light touch distally, cap refill less than two seconds distally Calves supple and nontender without erythema Assessment: []right forefoot eschar, osteomyelitis Plan: []Appreciate infection disease consultation: change zosyn to ceftriaxone 1 gm daily for 28 days with PICC and weekly cbc, cmp, crp Please fu with Dr Miller at discharge at [facility] for possibility of outpt surgery Laboratory Last Values WBC 10.8 10^3/ul (3.5-10.8) 11/23/17 06:31 RBC 4.20 10^6/ul (4.00-5.40) 11/23/17 06:31 Hgb 10.4 g/dl (12.0-16.0) L 11/23/17 06:31 Hct 34 % (35-47) L 11/23/17 06:31 MCV 81 fL (80-97) 11/23/17 06:31 MCH 25 pg (27-31) L 11/23/17 06:31 MCHC 31 g/dl (31-36) 11/23/17 06:31 RDW 20 % (10.5-15) H 11/23/17 06:31 Plt Count 381 10^3/ul (150-450) 11/23/17 06:31 MPV 5.9 um3 (7.4-10.4) L 11/23/17 06:31 Neut % (Auto) 59.5 % (38-83) 11/23/17 06:31 Lymph % (Auto) 27.6 % (25-47) 11/23/17 06:31 [place] % (Auto) 8.1 % (0-7) H 11/23/17 06:31 Eos % (Auto) 4.1 % (0-6) 11/23/17 06:31 Baso % (Auto) 0.7 % (0-2) 11/23/17 06:31 Absolute Neuts (auto) 6.4 10^3/ul (1.5-7.7) 11/23/17 06:31 Absolute Lymphs (auto) 3.0 10^3/ul (1.0-4.8) 11/23/17 06:31 Absolute Monos (auto) 0.9 10^3/ul (0-0.8) H 11/23/17 06:31 Absolute Eos (auto) 0.4 10^3/ul (0-0.6) 11/23/17 06:31 Absolute Basos (auto) 0.1 10^3/ul (0-0.2) 11/23/17 06:31 Absolute Nucleated RBC 0 10^3/ul 11/23/17 06:31 Nucleated RBC % 0.1 11/23/17 06:31 INR (Anticoag Therapy) 0.96 (0.77-1.02) 11/22/17 11:11 APTT 29.5 seconds (26.0-36.3) 11/22/17 11:11 Sodium 133 mmol/L (135-145) L 11/23/17 06:31 Potassium 4.8 mmol/L (3.5-5.0) 11/23/17 06:31 Chloride 108 mmol/L (101-111) 11/23/17 06:31 Carbon Dioxide 18 mmol/L (22-32) L 11/23/17 06:31 Anion Gap 7 mmol/L (2-11) 11/23/17 06:31 BUN 16 mg/dL (6-24) 11/23/17 06:31 Creatinine 0.59 mg/dL (0.51-0.95) 11/23/17 06:31 Est GFR ( Amer) 116.9 (>60) 11/23/17 06:31 Est GFR (Non-Af Amer) 96.6 (>60) 11/23/17 06:31 BUN/Creatinine Ratio 27.1 (8-20) H 11/23/17 06:31 Glucose 128 mg/dL (70-100) H 11/23/17 06:31 POC Glucose (mg/dL) 188 mg/dL (70-100) H 11/23/17 16:17 Lactic Acid 1.0 mmol/L (0.5-2.0) 11/21/17 16:05 Calcium 9.1 mg/dL (8.6-10.3) 11/23/17 06:31 Total Bilirubin 0.30 mg/dL (0.2-1.0) 11/21/17 06:20 AST 13 U/L (13-39) 11/21/17 06:20 ALT 10 U/L (7-52) 11/21/17 06:20 Alkaline Phosphatase 190 U/L (34-104) H 11/21/17 06:20 C-React Prot High Sens 105.00 mg/L (<2.00) H 11/21/17 06:20 Total Protein 5.3 g/dL (6.4-8.9) L 11/21/17 06:20 Albumin 2.5 g/dL (3.2-5.2) L 11/21/17 06:20 Globulin 2.8 g/dL (2-4) 11/21/17 06:20 Albumin/Globulin Ratio 0.9 (1-3) L 11/21/17 06:20 Blood Type O Negative 11/21/17 06:20 Antibody Screen Negative 11/21/17 06:20 Temp Pulse Resp BP Pulse Ox 97.6 F 82 17 126/35 98 11/23/17 15:14 11/23/17 15:14 11/23/17 15:14 11/23/17 15:14 11/23/17 15:14
[2017-11-23] MEDS: Acetaminophen TAB* 325 MG PO SCH (21:22)
[2017-11-23] MEDS: Nortriptyline CAP* 10 MG PO SCH (21:25)
[2017-11-23] MEDS: oxyCODONE TAB* 5 MG TAB PO SCH (21:25)
[2017-11-23] MEDS: Senna TAB PO SCH (21:26)
[2017-11-24] MEDS: Pantoprazole IV* 40 MG IV SCH (06:16)
[2017-11-24] MEDS: Insulin LISPRO* 1 UNITS UNIT SUBCUT SCH ×2 (08:25→11:40)
[2017-11-24] MEDS: Docusate CAP* 100 MG PO SCH (08:41)
[2017-11-24] MEDS: Polyethylene Glycol 3350* 17 GM PACKET PO SCH (08:42)
[2017-11-24] MEDS: Ascorbic Acid TAB* 500 MG PO SCH (08:44)
[2017-11-24] MEDS: Ferrous Gluconate TAB* 324 MG TAB PO SCH (08:44)
[2017-11-24] MEDS: Aspirin 81 mg CHEW TAB* 81 MG TAB.CHEW PO SCH (08:44)
[2017-11-24] MEDS: Cholecalciferol TAB* 1000 UNITS PO SCH (08:44)
[2017-11-24] MEDS: Pregabalin CAP(*) 25 MG PO SCH (08:44)
[2017-11-24] MEDS: Fluticasone NASAL SPRAY 50MCG* 16 gm SPRAY BTL BOTH NARES SCH (10:42)
[2017-11-24 12:01] VITALS: BP 133/56
--- NOTE | 2017-11-24 12:33 | PN ---
Subjective Date of Service: 11/24/17 Interval History: Pt resting comfortably. Reports foot pain well controlled on current regimen. Denies chest pain, shortness of breath, dizziness, N/V/D, abdominal pain, dysuria. Pt verbalized understanding of plan to be discharged with IV antibiotics and to follow up for further evaluation as an outpatient. 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 chronic anemia paf type ii dm chronic back pain gerd pshx s/p r hip replacement Objective Active Medications: Acetaminophen (Tylenol Tab*) 650 mg PO BEDTIME [facility] Last Admin: 11/23/17 21:22 Dose: 650 mg Ascorbic Acid (Vitamin C Tab*) 250 mg PO BID [facility] Last Admin: 11/24/17 08:44 Dose: 250 mg Aspirin (Aspirin 81 Mg Chew Tab*) 81 mg PO DAILY [facility] Last Admin: 11/24/17 08:44 Dose: 81 mg Cholecalciferol (Vitamin D Tab*) 1,000 units PO BEDTIME [facility] Last Admin: 11/23/17 21:24 Dose: 1,000 units Cholecalciferol (Vitamin D Tab*) 2,000 units PO DAILY [facility] Last Admin: 11/24/17 08:44 Dose: 2,000 units Dextrose (D50w Syringe 50 Ml*) 12.5 gm IV PUSH .FOR FS < 60 - SS PRN PRN Reason: FS < 60 Docusate Sodium (Colace Cap*) 200 mg PO DAILY [facility] Last Admin: 11/24/17 08:41 Dose: Not Given Ferrous Gluconate (Fergon Tab*) 324 mg PO DAILY [facility] Last Admin: 11/24/17 08:44 Dose: 324 mg Fluticasone Propionate (Flonase Nasal [place] 50mcg*) 1 spray BOTH NARES DAILY [facility] Last Admin: 11/24/17 10:42 Dose: 1 spray Heparin Sodium (Porcine) (Heparin Flush Picc/Ml/Cvc(*)) 1 - 3 ml FLUSH 0600, 1800 [facility]; Protocol Last Admin: 11/24/17 06:15 Dose: 1 ml Ceftriaxone Sodium 1 gm/ (Sodium Chloride) 50 mls @ 200 mls/hr IVPB Q24H [facility] Last Admin: 11/23/17 13:01 Dose: 200 mls/hr Insulin Glargine (Lantus(*)) 12 units SUBCUT Q24HR@2100 [facility] Last Admin: 11/23/17 22:10 Dose: 12 unit Insulin Human Lispro (Humalog*) 0 units SUBCUT AC [facility]; Protocol Last Admin: 11/24/17 11:40 Dose: 1 unit Nortriptyline HCl (Pamelor Cap*) 20 mg PO BEDTIME [facility] Last Admin: 11/23/17 21:25 Dose: 20 mg Oxycodone HCl (Roxycodone Tab*) 5 mg PO BEDTIME [facility] Last Admin: 11/23/17 21:25 Dose: 5 mg Pantoprazole Sodium (Protonix Iv*) 40 mg IV Q24H [facility] Last Admin: 11/24/17 06:16 Dose: 40 mg Polyethylene Glycol/Electrolytes (Miralax*) 17 gm PO DAILY [facility] Last Admin: 11/24/17 08:42 Dose: Not Given Pregabalin (Lyrica Cap(*)) 25 mg PO DAILY [facility] Last Admin: 11/24/17 08:44 Dose: 25 mg Senna (Senokot Tab*) 3 tab PO BEDTIME [facility] Last Admin: 11/23/17 21:26 Dose: 3 tab Vital Signs - 8 hr 11/24/17 11/24/17 11/24/17 07:49 08:00 08:44 Temperature 97.3 F Pulse Rate 77 Respiratory 20 18 16 Rate Blood Pressure 142/40 (mmHg) O2 Sat by Pulse 99 Oximetry 11/24/17 11/24/17 11:15 11:25 Temperature 97.3 F Pulse Rate 77 Respiratory 16 16 Rate Blood Pressure 133/56 (mmHg) O2 Sat by Pulse 99 Oximetry Oxygen Devices in Use Now: None Eyes: No Scleral Icterus, PERRLA Ears/Nose/Mouth/Throat: NL Teeth, Lips, Gums, Mucous Membranes Moist Neck: NL Appearance and Movements; NL JVP, Trachea Midline Respiratory: Symmetrical Chest Expansion and Respiratory Effort, Clear to Auscultation Cardiovascular: NL Sounds; No Murmurs; No JVD, No Edema Abdominal: NL Sounds; No Tenderness; No Distention Extremities: No Edema, No Clubbing, Cyanosis, - - Escar on first metatarsal joint with surrounding erythema similar to yesterday. 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 Neurological: - - Alert and orienmted to person, place and situation. Left hemiparesis residual deficits from prior CVA. Unable to lift R arm or leg off of bed. R arm with 4/5 strength. Lines/Tubes/Other Access: Clean, Dry and Intact PICC Line Result Diagrams: 11/23/17 06:31 11/23/17 06:31 Microbiology and Other Data: Microbiology 11/21/17 08:25 Nasal Screen MRSA (PCR) - Final Nasal Mrsa Not Detected Assess/Plan/Problems-Billing Assessment: 87 yr old female with multiple medical problems including R foot osteomyelitis ( on levaquin and bactrim), PVD s/p recent re-vascularization of right LE on asa/ plavix/ xarelto was transferred from [facility] to [facility] due to brbpr pt was found to have elevated wbc with black echscar seen on r foot. ED temp 100 with WBC 12.4 (16 prior to admission). ID and ortho consulted. No further signs of bleeding, VSS and H/H trending up. - Patient Problems (1) Gangrene of right foot Status: Acute Code(s): I96 - GANGRENE, NOT ELSEWHERE CLASSIFIED SNOMED Code( s): 09950905021491785 Comment: - With associated cellulitis and osteomyelitis that failed outpatient levaquin and bactrim - Recent re-vascularization of right LE from hip-knee by Dr. Beauchamp on 11/17. Dr. Beauchamp was consulted about anticoagulation plan going forward given recent GIB- plan to restart ASA only and hold plavix - will wait and watch for 5 days then plan to restart xarelto - Ortho following- Dr. Miller met with patient and recommended amputation, however pt refused. IV abx recommended as well as follow up as outpatient at [place] if patient would like to re-consider amputation at that time. - PICC placed for IV abtiobiotics: per ID will recieve treatment with ceftriaxone 1g daily for 28 days as well as weekly monitoring of CBC, CMP, CRP. - Pt will be able to return today to SNF where she has been residing. - MRI foot showing: osteo involving the first digit from the level of mid diaohysis of the first metatarsal distal. Soft tissue inflammatory change w/o evidence for loculated soft tissue. - Blood culture with no growth to date - Afebrile with WBC WNL - wound care consult (2) GI bleed Status: Acute Code(s): K92.2 - GASTROINTESTINAL HEMORRHAGE, UNSPECIFIED SNOMED Code(s): 61748047 Comment: - No further signs of bleeding. BP stable 133/56. Plavix and xarelto on hold. - H/H 10.4/34 from low of 8.4/27. Will continue to monitor (3) Sepsis Status: Acute Comment: - On admission presented with SIRS + known right foot infection. Now resolved- afebrile and WBC WNL. (4) History of CVA (cerebrovascular accident) Status: Chronic Code(s): Z86.73 - PRSNL HX OF TIA (TIA), AND CEREB INFRC W/O RESID DEFICITS SNOMED Code(s): 310492681 Comment: - Left hemiparesis residual deficits - Xarelto and plavix held in the setting of GIB. Plan to resume as above. (5) Diabetes 1.5, managed as type 2 Status: Chronic Priority: Medium Code(s): E13.9 - OTHER SPECIFIED DIABETES MELLITUS WITHOUT COMPLICATIONS SNOMED Code(s): 867511429 Comment: - Continue glargine 12 units nightly and sliding scale lispro (6) DVT prophylaxis Status: Acute Priority: High Code(s): KXP3164 - SNOMED Code(s): 494669495 Comment: - DVT ppx with SCDs only in setting of recent GI bleed (7) DNR (do not resuscitate) Status: Acute Status and Disposition: DC back to SNF with plan for IV antibiotics today
[2017-11-24] MEDS: cefTRIAXone(*) 1 GM in NS 0.9% 50 ML* 50 ML IVPB SCH (12:56)
--- NOTE | 2017-11-25 07:34 | DS ---
AMENDED REPORT NOW INCLUDES COSIGNER DESIGNATION - ESIGNED BEFORE ADJUSTMENTS CC: Dr. Bethel Cullen; Dr. Miller * DISCHARGE SUMMARY: DATE OF ADMISSION: 11/21/17 DATE OF DISCHARGE: 11/24/17 PROVIDER: Mel Montes NP ATTENDING: Dr. Pressley.* (DICTATED BY MEL MONTES NP) PRIMARY CARE PROVIDER: Dr. Bethel Cullen. CONSULTING PHYSICIAN: Dr. Miller. PRIMARY DIAGNOSIS: Gangrene of right foot. SECONDARY DIAGNOSES: 1. Gastrointestinal bleed. 2. Sepsis. 3. History of cerebrovascular accident. 4. Diabetes. DISCHARGE MEDICATIONS: 1. Xarelto 10 mg p.o. daily. This medication was being held in the setting of GI bleed and can be restarted on 11/26/17. 2. Omeprazole 20 mg p.o. b.i.d. 3. Vitamin C 250 mg p.o. b.i.d. 4. Vitamin D3 2000 units p.o. daily. 5. Vitamin D3 1000 units p.o. at bedtime. 6. Senna 3 tabs p.o. at bedtime. 7. Acetaminophen 2 tabs p.o. at bedtime. 8. MiraLax 17 g p.o. daily. 9. Oxycodone 5 mg p.o. at bedtime. 10. Nortriptyline 20 mg p.o. at bedtime. 11. Lyrica 25 mg p.o. daily. 12. Lantus 12 units subcu daily. 13. Aspirin 81 mg p.o. daily. 14. Insulin regular 5 units subcu daily. 15. Flonase 1 spray in both nares daily. 16. Ferrous gluconate tab 1 tab p.o. daily. 17. Colace 200 mg p.o. daily. NEW MEDICATIONS: 1. Rocephin 1 g IV daily via PICC line. 2. Lactobacillus acidophilus 1 tab p.o. daily. 3. Heparin flush for PICC 1 to 3 mL flush at 6 o'clock and 1800 hours. NEW LAB ORDERS: Weekly monitoring of CBC, CMP, and CRP. HOSPITAL COURSE: Ms. Cavanaugh is an 87-year-old female with a complicated past medical history including right foot osteomyelitis, on p.o. Levaquin and Bactrim as an outpatient; PVD, status post recent revascularization of right lower extremity, for which she was on aspirin, Plavix, and Xarelto; diabetes; history of CVA with residual left hemiparesis who presented with bright red blood per rectum as a transfer from a assisted facility where she resides to [place] and then to [facility]. On exam, the patient was found to have an elevated white blood cell count of 12.4, although this was reported to be 16 prior to admission and a temperature of 100. The rest of her vitals were stable. On exam, black eschar with surrounding erythema was seen on the first metatarsal of her right foot. An x-ray of the right foot showed cortical destruction along the medial aspect of the first metatarsal medial head, could be seen in the setting of osteomyelitis at this location. MRI of the foot showed osteomyelitis involving the first digit from the level of mid diaphysis of the first metatarsal. Distal soft tissue inflammatory change without evidence of loculated soft tissue abscess. ID and Ortho were consulted. Dr. Miller met with the patient and recommended amputation; however, patient refused. He then recommended IV antibiotics as well as followup as an outpatient at [place] if the patient would like to reconsider amputation at that time. The topic of amputation was broached by other providers as well who explained the risks of not proceeding with the amputation given the severity of infection; however, the patient again voiced that she did not want to proceed with amputation at this time and wanted to instead try the IV antibiotics. Dr. Hedrick with ID recommended treatment with ceftriaxone 1 g daily for 28 days as well as monitoring of CBC, CMP, and CRP. A PICC line was placed for the delivery of those antibiotics. Dr. Beauchamp who had performed the revascularization of her right lower extremity from hip to knee on 11/17/17 was consulted about her anticoagulation plan going forward given the recent GI bleed and it was decided to restart aspirin only and hold the Plavix, and then wait for 5 days and restart the Xarelto if no further GI bleeding was noted. The planned start date for that is 11/26/17. After the initial incident, the patient did not have any additional episodes of dark stools or bright red bleeding per rectum or any other additional signs of bleeding. Her vital signs were stable, and H and H trended up from a low of 8.4 up to 10.4. The patient did not want a colonoscopy. On day of discharge, the patient is afebrile and most recent white blood cell count is 10.8. The patient is medically stable and will be able to return today to the assisted facility where she has been residing and should follow up with Dr. Miller and Dr. Cullen as an outpatient. DISPOSITION: The patient's condition is stable. Discharged to [facility] where she was residing prior to admission. DIET: Carb controlled diet. ACTIVITY: Activity as tolerated. FOLLOWUP: Please follow up with her primary care provider, Dr. Cullen, in 4 to 7 days. Please also follow up with Dr. Miller in 4 to 7 days. TIME SPENT: Time spent for this discharge was 35 minutes. MEL MONTES, WALDEMAR [id number]/CPS #: [id number]
[2017-11-25] MEDS ORDERED: Lactobacillus Acidophilus* 1 TAB PO SCH (09:00)
== END 2017-11-24 15:00 | DRG 872 ==
LOC: ED 00:37 → MEDTELE 06:02
PROVIDERS: ADMIT Internal Medicine; ATTEND Internal Medicine
PROC: 02HV33Z Insertion of Infusion Device into Superior Vena Cava, Percutaneous Approach (ICD-10-PCS; principal; 2017-11-23)
DX: A41.9 Sepsis, unspecified organism (principal); M86.671 Other chronic osteomyelitis, right ankle and foot; I96 Gangrene, not elsewhere classified; D62 Acute posthemorrhagic anemia; E11.52 Type 2 diabetes mellitus with diabetic peripheral angiopathy with gangrene; L03.115 Cellulitis of right lower limb; K92.1 Melena; I69.354 Hemiplegia and hemiparesis following cerebral infarction affecting left non-dominant side; M86.171 Other acute osteomyelitis, right ankle and foot; E11.69 Type 2 diabetes mellitus with other specified complication; I25.10 Atherosclerotic heart disease of native coronary artery without angina pectoris; I48.0 Paroxysmal atrial fibrillation; E11.51 Type 2 diabetes mellitus with diabetic peripheral angiopathy without gangrene; G89.29 Other chronic pain; M54.9 Dorsalgia, unspecified; K21.9 Gastro-esophageal reflux disease without esophagitis; Z96.641 Presence of right artificial hip joint; I10 Essential (primary) hypertension; M19.90 Unspecified osteoarthritis, unspecified site; E11.40 Type 2 diabetes mellitus with diabetic neuropathy, unspecified; K44.9 Diaphragmatic hernia without obstruction or gangrene; M81.0 Age-related osteoporosis without current pathological fracture; H91.90 Unspecified hearing loss, unspecified ear; E11.36 Type 2 diabetes mellitus with diabetic cataract; E78.5 Hyperlipidemia, unspecified; Z66 Do not resuscitate; Z79.01 Long term (current) use of anticoagulants; Z88.5 Allergy status to narcotic agent; Z88.8 Allergy status to other drugs, medicaments and biological substances; Z87.440 Personal history of urinary (tract) infections; Z89.421 Acquired absence of other right toe(s); Z82.49 Family history of ischemic heart disease and other diseases of the circulatory system; I69.392 Facial weakness following cerebral infarction; Z74.01 Bed confinement status; Z79.82 Long term (current) use of aspirin; Z79.4 Long term (current) use of insulin
CPT/HCPCS: 36415; 80048; 80053; 83605; 85014; 85018; 85025; 85610; 85730; 86141; 86850; 86900; 86901; 87040; 87641; 93306; 99284; A9270-GY; C1751; C8929; J0696; J2543; J3370